=== PATIENT | female | born 1990 | race Caucasian/White ===

== ENCOUNTER → 2017-06-05 13:48 | Outpatient (CLI) | payer BC, SELFPAY ==
[2017-06-12 12:18] LABS: HPV Reflexed? NOT INDICATED
== END ==
PROVIDERS: Visit Provider Obstetrics & Gynecology
DX: Z12.4 Encounter for screening for malignant neoplasm of cervix (principal)
CPT/HCPCS: 88175; G0145

== ENCOUNTER → 2018-08-20 17:00 | Outpatient (CLI) | payer BC, SELFPAY ==
[2018-08-20 12:55] LABS: Absolute Lymphocyte Count 2.25 X10^3/ul (0.83-4.51); Absolute Neutrophil Count 3.4 X10^3/uL (2.0-7.7); Basophil# 0.03 X10^3/uL; Basophil% 0.5 % (0-1); Eosinophil# 0.17 X10^3/uL; Eosinophils% 2.7 % (0-5); Hematocrit 41.1 % (37-47); Hemoglobin 13.5 g/dl (12.0-15.0); Lymphocyte # 2.25 X10^3/ul (4.0); Lymphocyte % 35.9 % (19-41); Mean Corp Hgb Conc 32.8 g/gl (32-36); Mean Corpuscular Hgb 30.5 pg (27.0-32.0); Mean Platelet Vol. 10.6 fl (6.2-12.0); Monocyte# 0.42 X10^3/uL; Monocyte% 6.7 % (0-10); Neutrophil # 3.39 X10^3/uL (2.7-7.7); Platelet Count 260 K/mm3 (150-450); RBC Distribution Width CV 12.8 % (11.6-14.6); RBC Distribution Width SD 43.5 fl (35.1-43.9); Red Blood Count 4.42 M/mm3 (4.2-5.4); White Blood Count 6.3 K/mm3 (4.4-11.0)
[2018-08-20 12:56] LABS: POSITIVE COUNT NO; POSITIVE DIFFERENTIAL NO; POSITIVE MORPHOLOGY NO
[2018-08-20 13:08] LABS: ALB/GLOB Ratio 1.4 RATIO (0.9-2.4); AST(SGOT) 13 U/L (15-37); Alanine Aminotransfer ALT/SGPT 16 U/L (13-56); Alkaline Phosphatase 47 U/L (45-117); Anion Gap 2 (5-15); BUN 9 mg/dL (7-18); BUN/Creat Ratio 13.2 RATIO (10-20); Calcium,Total 9.1 mg/dL (8.5-10.1); Chloride 107 mmol/L (98-107); Creatinine, Serum 0.68 mg/dL (0.55-1.02); EST Glomerular Filtration Rate 108 mL/min (>60); Est Glom Filt Rate - Afr Amer 130 mL/min (>60); Globulin 2.9 g/dL (2.2-4.2); Glucose 76 mg/dL (74-106); Potassium 4.2 mmol/L (3.5-5.1); Protein, Total 6.9 g/dL (6.4-8.2); Sodium Level 140 mmol/L (136-145)
== END ==
PROVIDERS: Nurse Practitioner; Family Provider Internal Medicine; PCP Internal Medicine; Referring Provider Internal Medicine; Visit Provider Internal Medicine
DX: R10.9 Unspecified abdominal pain (principal); F03.91 Unspecified dementia, unspecified severity, with behavioral disturbance
CPT/HCPCS: 80053; 85025

== ENCOUNTER → 2020-05-21 14:33 | Outpatient (CLI) | payer BC, SELFPAY ==
[2017-02-14 22:24] VITALS: BMI 24.5
[2020-05-21 17:13] LABS: LDH 190 U/L (84-246)
[2020-05-21 17:15] LABS: hCG Titer Quant., Serum < 1 mIU/mL (1-3)
[2020-05-24 12:30] LABS: Cancer Antigen 125 26.9 U/mL (0.0-38.1); Carbohydrate Ag 19-9 2261 4 U/mL (0-35); Carcinoembryonic Antigen 0.6 ng/mL (0.0-4.7)
[2020-05-24 15:07] LABS: CA 19-9 Serial Monitor Graph 4
== END ==
PROVIDERS: PCP Internal Medicine; Visit Provider Student in an Organized Health Care Education/Training Program
DX: N83.9 Noninflammatory disorder of ovary, fallopian tube and broad ligament, unspecified (principal)
CPT/HCPCS: 36415; 82378; 83615; 84702; 86301; 86304

== ENCOUNTER → 2022-08-30 | Outpatient (CLI) | payer BC, SELFPAY ==
[2022-09-03 11:07] LABS: HPV APTIMA, High Risk Negative (Negative)
== END | disposition home or self-care (01) ==
LOC: LABSPEC 14:39
PROVIDERS: PCP Internal Medicine; Visit Provider Student in an Organized Health Care Education/Training Program
DX: Z12.4 Encounter for screening for malignant neoplasm of cervix (principal)
CPT/HCPCS: 87624; 88175; G0145

== ENCOUNTER → 2022-09-13 | Outpatient (CLI) | payer BC, SELFPAY ==
[2022-09-13 12:30] LABS: LDH 125 U/L (84-246)
[2022-09-14 15:08] LABS: AFP, Tumor Marker < 1.8 ng/mL (0.0-6.4); Cancer Antigen 125 16.9 U/mL (0.0-38.1); Carbohydrate AG 19-9 3 U/mL (0-35); Carcinoembryonic Antigen 2139 < 0.6 ng/mL (0.0-4.7)
== END | disposition home or self-care (01) ==
LOC: WOBLAB 10:28
PROVIDERS: PCP Internal Medicine; Visit Provider Student in an Organized Health Care Education/Training Program
DX: N83.201 Unspecified ovarian cyst, right side (principal)
CPT/HCPCS: 36415; 82105; 82378; 83615; 86301; 86304

== ENCOUNTER 2022-12-05 21:12 | Emergency (ER) | payer BC, SELFPAY ==
[2022-12-05 21:13] VITALS: BP 112/71; PULSE 86; RESP 16; TEMP 35.8; O2SAT 99; BMI 23.8
[2022-12-05] MEDS: Ondansetron 4 MG/2 ML Vial IV (21:47)
[2022-12-05] MEDS: 0.9% Normal Saline (1000mL) 1,000 ML 1000 ML IV (21:48)
[2022-12-05 22:06] LABS: Color, Urine Yellow (Yellow); Glucose, Dipstick 100 mg/dl (Normal); Ketone-Dipstick Negative (Negative); Leukocyte Esterase-Dipstick 100 /ul (Negative); Nitrite-Dipstick Negative (Negative); Occult Blood-Urine 10 /ul (Negative); Protein-Dipstick 15 mg/dl (Negative); Urine Bilirubin Dipstick Negative (Negative); Urine Clarity Sl. Cloudy (Clear); Urine Urobilinogen Normal (Normal); Urine pH 6.5 (5.0 - 8.0)
[2022-12-05 22:16] LABS: Bacteria 2+ /hpf (None Seen); Mucous, Urine 1+ /hpf (<or=2+); Red Blood Cells-Urine 0-5 SEEN /hpf (0-5); Squamous Epithelial Cells - UA 5-10 SEEN /hpf (5-10); White Blood Cells 0-5 SEEN /hpf (0-5)
[2022-12-05 22:22] LABS: Anion Gap 3 (5-15); BUN 9 mg/dL (7-18); BUN/Creat Ratio 16.1 RATIO (10-20); Calcium,Total 8.6 mg/dL (8.5-10.1); Chloride 105 mmol/L (98-107); Creatinine, Serum 0.56 mg/dL (0.55-1.02); EST Glomerular Filtration Rate 131 mL/min (>60); Est Glom Filt Rate - Afr Amer 159 mL/min (>60); Estimated Creatinine Clearance 111.95 ml/min; Glucose 90 mg/dL (74-106); Potassium 3.6 mmol/L (3.5-5.1); Sodium Level 136 mmol/L (136-145)
--- NOTE | 2022-12-05 22:32 | EX.ED.DYSGE1 ---
HPI History of Present Illness Chief Complaint: Nausea/Vomiting Informant: patient Narrative Narrative: Patient presents with concerns for dehydration. She is currently 7 weeks and has been having a lot of vomiting with her . She states with her 2 prior successful pregnancies she had significant nausea throughout. Patient was seen by OB in [place] last week. She is taking Phenergan regularly and was given limited tabs of Zofran to use as needed. Patient states she feels that Zofran works better but she did not have many of them to use. She feels that she is only urinated once today and is concerned she is getting dehydrated. She denies abdominal cramping or spotting. Patient is G4, P2, Ab1. [facility] Medical History (Updated 12/05/22 @ 23:[address] Regine Desai MD) Kidney stone Home Medications cephalexin 500 mg capsule 500 mg PO Q12 #10 CAPSULES 12/05/22 [Rx Last Taken Unknown] ondansetron 4 mg disintegrating tablet 4 mg PO Q8H PRN PRN Nausea #20 tabs 12/05/22 [Rx Last Taken Unknown] Allergy/AdvReac Type Severity Reaction Status Date / Time No Known Allergies Allergy Verified 12/05/22 21:13 Social History Smoking Status: Never smoker ROS ROS ED Constitutional Constitutional ED: Denies chills or fever(s) Eyes Eyes: Denies change in vision or discharge from eye(s) ENT ENT ED: Denies discharge from eye(s), rhinorrhea or sore throat Cardiovascular Cardiovascular: Denies chest pain or palpitations Respiratory/Chest Respiratory/Chest: Denies cough or dyspnea Gastrointestinal Gastrointestinal: Reports nausea and vomiting; Denies abdominal pain or diarrhea Genitourinary Genitourinary ED: Reports other Details: Decreased urine output Musculoskeletal Musculoskeletal: Denies back pain or extremity pain Integumentary Denies Abrasions or rash Neurologic Neurologic: Denies headache(s) or weakness Allergic/Immunologic Allergic/Immunologic ED: Denies lip swelling or urticaria EXAM Physical Exam Const Vital Signs: 12/05/22 21:13 Temperature 96.5 F L Temperature Source Temporal Pulse Rate 86 Respiratory Rate 16 Blood Pressure 112/71 Blood Pressure Mean 84 Pulse Ox 99 Positive well nourished and well developed General Appearance ED: well developed HEENT Reports normocephalic and head/scalp atraumatic Eyes PERRL and EOMs intact bilaterally Neck supple Chest Wall inspection of chest normal and palpation of chest normal Resp normal respiratory effort and clear to auscultation bilaterally Cardio regular rate and regular rhythm GI GI Narrative: Abdomen soft nontender. Hypoactive bowel sounds noted. Palpation: soft Extremity normal to inspection Neuro oriented x3 and no sensory deficits noted Sensorium / Orientation: alert Motor Exam: strength 5/5 throughout Psych mental status grossly normal Skin no rashes or lesions noted MDM MDM MDM Narrative Medical decision making narrative: IV line established. Patient given IV fluids along with Zofran. Chemistry studies obtained to evaluate electrolyte status and urinalysis obtained to evaluate for potential infection. Lab Data Labs: Laboratory Results - last 24 hr 12/05/22 21:50 Sodium 136 Potassium 3.6 Chloride 105 Carbon Dioxide 28.0 Anion Gap 3 L BUN 9 Creatinine 0.56 Estim Creat Clear Calc 111.95 Est GFR (MDRD) Af Amer 159 Est GFR (MDRD) Non-Af 131 BUN/Creatinine Ratio 16.1 Glucose 90 Calcium 8.6 Urine Color Yellow Urine Clarity Sl. Cloudy Urine pH 6.5 Ur Specific [place] 1.020 Urine Protein 15 H Urine Glucose (UA) 100 H Urine Ketones Negative Urine Occult Blood 10 H Urine Nitrite Negative Urine Bilirubin Negative Urine Urobilinogen Normal Ur Leukocyte Esterase 100 H Urine RBC 0-5 SEEN Urine WBC 0-5 SEEN Ur Squamous Epith Cells 5-10 SEEN Urine Bacteria 2+ Urine Mucus 1+ Treatment and Re-Evaluation :: Chemistry studies are unremarkable with normal renal function. Urinalysis reveals no ketones. She does have 2+ bacteria with 5-10 epithelial cells. 100 leukocyte esterase is noted. Given that the patient is currently I will treat her with 5 days of Keflex for bacteriuria. She is improved with fluids and Zofran. She is tolerating ice chips and crackers. I will write her prescription for Zofran. She will follow-up with her LIFT DRIVER as scheduled. Return instructions given. Discharge Plan Triage Chief Complaint: Nausea/Vomiting ED Provider: Regine Desai Dx/Rx/DC Orders Clinical Impression: First trimester , Vomiting Instructions: 1st Trimester, ED Vomiting (Adult) Prescriptions: New cephalexin 500 mg capsule 500 mg PO Q12 Qty: 10 0RF ondansetron 4 mg tablet,disintegrating 4 mg PO Q8H PRN PRN (Reason: Nausea) Qty: 20 0RF Primary Care Provider: Divine Ruelas Referrals: Divine Ruelas DO [Primary Care Provider] - JJ [employer] [Non-Staff] - 1 Week if not improving Disposition Disposition: Home, Self Care
[2022-12-05] MEDS: 0.9% Normal Saline (1000mL) 1,000 ML 150 ML IV (22:51)
[2022-12-05 23:13] VITALS: RESP 18
== END 2022-12-05 23:41 | disposition home or self-care (01) ==
PROVIDERS: Emergency Provider Emergency Medicine; PCP Internal Medicine; Visit Provider Emergency Medicine
DX: O99.891 Other specified diseases and conditions complicating pregnancy (principal); R11.2 Nausea with vomiting, unspecified; Z3A.01 Less than 8 weeks gestation of pregnancy
CPT/HCPCS: 80048; 81001; 96361; 96374; 99282; J7030; A4216; J2405

== ENCOUNTER 2022-12-09 20:22 | Emergency (ER) | payer BC, SELFPAY ==
[2022-12-09 20:26] VITALS: BP 101/61; PULSE 89; RESP 18; TEMP 36.3; O2SAT 99; BMI 25.1
--- NOTE | 2022-12-09 20:44 | EX.ED.DYSGE1 ---
HPI History of Present Illness Chief Complaint: Nausea/Vomiting Informant: patient Narrative Narrative: Patient presents with feeling dehydrated nausea vomiting. Patient is currently almost 8 weeks . She had hyperemesis gravidarum with all her pregnancies. First was not bad but second was worse and then this is also bad. She has had symptoms for almost 2 weeks. She has Phenergan and Zofran at home but is trying to use them sparingly because she does not have a lot. They do help. She is able to get some occasional fluids and food in but it seems to be getting worse. She states she gets to a point where it just seems like it rapidly gets worse. She feels that she is dehydrated and that makes this worse. She is not having abdominal pain. She has no discharge or bleeding. She has no diarrhea. She was treated for possible UTI. But she is now not having any urinary symptoms. I did look on the computer at those prior urine and lab test. There is no culture. I will recheck this just to be safe. She is seeing a new OB in [place] [facility]. Has had 1 visit. She also tried vitamin B6 and Unisom. But it seem like the B6 tablets made her very nauseated acutely when she tried them. [facility] Medical History Kidney stone Home Medications cephalexin 500 mg capsule 500 mg PO Q12 #10 CAPSULES 12/05/22 [Rx Last Taken Unknown] ondansetron 4 mg disintegrating tablet 4 mg PO Q8H PRN PRN Nausea #20 tabs 12/05/22 [Rx Last Taken Unknown] promethazine 25 mg tablet 25 mg PO Q8H PRN PRN nausea and vomiting 12/09/22 [History Last Taken Unknown] Allergy/AdvReac Type Severity Reaction Status Date / Time No Known Allergies Allergy Verified 12/09/22 20:23 Social History Smoking Status: Never smoker ROS ROS ED ROS Narrative A complete review of systems was performed and is negative except as documented in the history of present illness. Some specific details below. Constitutional: No recent fevers or chills. No malaise. ENT: No difficulty swallowing. No swelling. No pain. No real reflux. CV: No chest pain or palpitations. Respiratory: No dyspnea. No hemoptysis. No difficulty taking breaths. GI: Please see history of present illness. Nausea vomiting but no pain or diarrhea. : No frequency dysuria or hematuria. She is finishing treatment for UTI. Musculoskeletal: No recent trauma. No pains. Skin: No rash. Nondiaphoretic. Neuro: No weakness or numbness. Endocrine: No polyuria or polydipsia. EXAM Physical Exam Narrative Exam Narrative: CONSTITUTIONAL: Patient is nontoxic in appearance. The patient looks comfortable. HEENT: No notable trauma. Mucous membranes my only by. No sinus tenderness. No indication of pain with swallowing. EYES: No conjunctival injection. No proptosis. CARDIOVASCULAR: Regular rate. Regular rhythm. No notable murmur. No JVD. Her heart rate is only about 85. But when I have her stand up her heart rate does clearly increase. She does not get lightheaded or dizzy though. RESPIRATORY: No respiratory distress. Breathing is unlabored. No pain with a deep breath. GASTROINTESTINAL: Not distended. Bowel sounds are normal. No tenderness. GENITOURINARY: No tenderness over the bladder. No CVA tenderness. MUSCULOSKELETAL: Atraumatic. NEUROLOGICAL: Patient is alert and appropriate. No focal deficit noted. SKIN: No noted rashes. No diaphoresis. No pallor or jaundice. PSYCHIATRIC: Patient is calm. Mood is appropriate. Const Vital Signs: 12/09/22 20:26 Temperature 97.3 F L Temperature Source Temporal Pulse Rate 89 Respiratory Rate 18 Blood Pressure 101/61 Blood Pressure Mean 74 Pulse Ox 99 MDM MDM MDM Narrative Medical decision making narrative: Patient CBC shows no marked abnormality. Patient's electrolytes are normal. Patient's liver function test are normal. I rechecked the patient. She is feeling better already. She is only part way through her first bag. She has about 700 cc in. Plan is to get her a couple liters here. Zofran has helped here. She has been rationing her Zofran and Phenergan at home. I explained that it is better to take the medicine if it helps her eat and drink. Although we would prefer not to be on any medicines when , we also do not want her unable to eat and drink. I think if her urine does not show signs of infection we can stop her antibiotics at this time. She only has a couple days left if needed. She does not have any symptoms of a UTI. She has no fevers either. Patient's urine does not give me any UTI. Since she has no symptoms and no white cells of significance I think we can hold antibiotics at this time. Although her nausea and vomiting started long before she was on antibiotics these could contribute and I would like to minimize medications. I will send off a urine culture. We will refill her Zofran and Phenergan. Lab Data Attestation: I reviewed the patient's lab results. Labs: Laboratory Results - last 24 hr 12/09/22 12/09/22 20:50 21:46 WBC 9.8 RBC 4.22 Hgb 12.8 Hct 39.4 MCV 93.4 MCH 30.3 MCHC 32.5 RDW Std Deviation 42.1 RDW Coeff of Home 12.3 Plt Count 317 MPV 9.5 Immature Gran % (Auto) 0.300 Neut % (Auto) 70.1 H Lymph % (Auto) 21.1 [place] % (Auto) 5.9 Eos % (Auto) 2.0 Baso % (Auto) 0.6 Absolute Neuts (auto) 6.8 Absolute Lymphs (auto) 2.06 Nucleated RBC % 0 Sodium 139 Potassium 3.8 Chloride 106 Carbon Dioxide 27.0 Anion Gap 6 BUN 10 Creatinine 0.60 Estim Creat Clear Calc 104.49 Est GFR (MDRD) Af Amer 146 Est GFR (MDRD) Non-Af 121 BUN/Creatinine Ratio 16.6 Glucose 90 Calcium 9.3 Total Bilirubin 0.30 AST 12 L ALT 23 Alkaline Phosphatase 51 Total Protein 6.7 Albumin 3.4 Globulin 3.3 Albumin/Globulin Ratio 1.0 Urine Color Yellow Urine Clarity Sl. Cloudy Urine pH 6.0 Ur Specific [place] 1.025 Urine Protein 15 H Urine Glucose (UA) 100 H Urine Ketones Negative Urine Occult Blood 10 H Urine Nitrite Negative Urine Bilirubin Negative Urine Urobilinogen Normal Ur Leukocyte Esterase 25 H Urine RBC 0-5 SEEN Urine WBC 0-5 SEEN Ur Squamous Epith Cells 0-5 SEEN Amorphous Sediment R Urine Bacteria 0 SEEN Urine Mucus 0 SEEN Discharge Plan Triage Chief Complaint: Nausea/Vomiting ED Provider: Mike Zaptaa Dx/Rx/DC Orders Clinical Impression: Hyperemesis gravidarum, First trimester , History of UTI Instructions: ED Hyperemesis Gravidarum Prescriptions: No Action cephalexin 500 mg capsule 500 mg PO Q12 Qty: 10 0RF ondansetron 4 mg tablet,disintegrating 4 mg PO Q8H PRN PRN (Reason: Nausea) Qty: 20 0RF promethazine 25 mg tablet 25 mg PO Q8H PRN PRN (Reason: nausea and vomiting) Patient Comments: take 1 tablet by mouth every 8 hours if needed for nausea Primary Care Provider: Divine Ruelas Referrals: Divine Ruelas, [Primary Care Provider] - As Needed Activity Restrictions/Additional Instructions: Follow-up with your OB physician as soon as possible. Give them a call on Sunday for an update. Disposition Disposition: Home, Self Care
[2022-12-09] MEDS: Ondansetron 4 MG/2 ML Vial IV (20:54)
[2022-12-09] MEDS: 0.9% Normal Saline (1000mL) 2,000 ML 1000 ML IV (20:54)
[2022-12-09 21:03] LABS: Absolute Lymphocyte Count 2.06 X10^3/uL (0.83-4.51); Absolute Neutrophil Count 6.8 X10^3/uL (2.0-7.7); Basophil# 0.06 X10^3/uL; Basophil% 0.6 % (0-1); Hematocrit 39.4 % (37-47); Hemoglobin 12.8 g/dL (12.0-15.0); Lymphocyte # 2.06 X10^3/ul (0.83-4.51); Lymphocyte % 21.1 % (19-41); Mean Corp Hgb Conc 32.5 g/dL (32-36); Mean Corpuscular Hgb 30.3 pg (27.0-32.0); Mean Corpuscular Volume 93.4 fL (81-99); Mean Platelet Vol. 9.5 fl (6.2-12.0); Monocyte# 0.58 X10^3/uL; Monocyte% 5.9 % (0-10); NRBC Flagged by Analyzer 0 % (0-5); Neutrophil # 6.84 X10^3/uL (2.7-7.7); Neutrophil % 70.1 % (47-70); Platelet Count 317 K/mm3 (150-450); RBC Distribution Width CV 12.3 % (11.6-14.6); RBC Distribution Width SD 42.1 fl (35.1-43.9); Red Blood Count 4.22 M/mm3 (4.2-5.4); White Blood Count 9.8 K/mm3 (4.4-11.0)
[2022-12-09 21:15] LABS: AST(SGOT) 12 U/L (15-37); Alanine Aminotransfer ALT/SGPT 23 U/L (13-56); Albumin, Serum 3.4 g/dL (3.2-5.0); Alkaline Phosphatase 51 U/L (45-117); Anion Gap 6 (5-15); BUN 10 mg/dL (7-18); BUN/Creat Ratio 16.6 RATIO (10-20); Calcium,Total 9.3 mg/dL (8.5-10.1); Chloride 106 mmol/L (98-107); EST Glomerular Filtration Rate 121 mL/min (>60); Est Glom Filt Rate - Afr Amer 146 mL/min (>60); Estimated Creatinine Clearance 104.49 ml/min; Globulin 3.3 g/dL (2.2-4.2); Glucose 90 mg/dL (74-106); Potassium 3.8 mmol/L (3.5-5.1); Protein, Total 6.7 g/dL (6.4-8.2); Sodium Level 139 mmol/L (136-145)
[2022-12-09 21:52] LABS: Bacteria 0 SEEN /hpf (None Seen); Mucous, Urine 0 SEEN /hpf (<or=2+)
[2022-12-09 21:53] LABS: Color, Urine Yellow (Yellow); Glucose, Dipstick 100 mg/dl (Normal); Ketone-Dipstick Negative (Negative); Leukocyte Esterase-Dipstick 25 /ul (Negative); Nitrite-Dipstick Negative (Negative); Occult Blood-Urine 10 /ul (Negative); Protein-Dipstick 15 mg/dl (Negative); Specific Gravity, Urine 1.025 (1.002-1.030); Urine Bilirubin Dipstick Negative (Negative); Urine Clarity Sl. Cloudy (Clear); Urine Urobilinogen Normal (Normal)
[2022-12-09 21:58] LABS: Amorphous Sediment R; Red Blood Cells-Urine 0-5 SEEN /hpf (0-5); Squamous Epithelial Cells - UA 0-5 SEEN /hpf (5-10); White Blood Cells 0-5 SEEN /hpf (0-5)
[2022-12-09] MEDS: Metoclopramide 10 MG/2 ML Vial 5 MG IV (23:40)
[2022-12-10 01:03] VITALS: PULSE 68; RESP 16; O2SAT 99
== END 2022-12-10 01:05 | disposition home or self-care (01) ==
PROVIDERS: Emergency Provider Emergency Medicine; PCP Internal Medicine; Visit Provider Emergency Medicine
DX: O21.0 Mild hyperemesis gravidarum (principal); Z3A.08 8 weeks gestation of pregnancy
CPT/HCPCS: 80053; 81001; 85025; 87077; 87086; 87088; 87186; 96361; 96374; 96375; 99283; J7030; A4216; J2405

== ENCOUNTER 2023-04-12 14:58 | Emergency (ER) | payer BC, SELFPAY ==
[2023-04-12 14:59] VITALS: BP 98/68; PULSE 125; RESP 18; TEMP 36.8; O2SAT 100; BMI 25.8
--- NOTE | 2023-04-12 15:16 | ED.VIS.GI ---
HPI HPI - GI History of Present Illness Chief Complaint: Nausea/Vomiting Informant: patient Nausea/Vomiting/Emesis GI Symptom: Positive for Nausea and Vomiting Onset: Yesterday Quality: Positive for Nonbilious; Negative for Blood streaks, Coffee ground or Hematemesis Diarrhea/Melena/Hematochezia GI Symptom: Negative for Diarrhea, Melena or Hematochezia Associated Symptoms Associated Symptoms: Negative for Dysuria, Frequency or Hematuria Narrative Narrative: Patient presents with nausea and vomiting that began yesterday. Patient states started having some nausea last night. Patient that she has been unable keep anything down today. Patient admits to some subjective chills but denies any fevers. Patient states she had a recent sore throat and cough. Patient denies any diarrhea, melena, or hematochezia. Patient denies any urinary complaints. Patient is 25 weeks . Patient denies any abnormal vaginal bleeding or discharge. Patient states she has been feeling lightheaded and feels like she might be dehydrated. Patient also admits to some general myalgias. [facility] Medical History Kidney stone Home Medications cephalexin 500 mg capsule 500 mg PO Q12 #10 CAPSULES 12/05/22 [Rx Last Taken Unknown] ondansetron 4 mg disintegrating tablet 4 mg PO Q8H PRN PRN Nausea #20 tabs 12/05/22 [Rx Last Taken Unknown] promethazine 25 mg tablet 25 mg PO Q8H PRN PRN nausea and vomiting 12/09/22 [History Last Taken Unknown] metoclopramide HCl 5 mg tablet (Reglan) 5 mg PO 4X/DAY PRN PRN nausea and vomiting #28 tabs 12/10/22 [Rx Last Taken Unknown] oseltamivir 75 mg capsule 75 mg PO BID #10 CAPSULES 04/12/23 [Rx Last Taken Unknown] Allergy/AdvReac Type Severity Reaction Status Date / Time No Known Allergies Allergy Verified 12/09/22 20:23 Surgical History no surgical history no surgical history Social History Smoking Status: Never smoker ROS ROS ED Constitutional Constitutional ED: Denies chills or fever(s) Eyes Eyes: Denies blurry vision or change in vision ENT ENT ED: Reports sore throat; Denies rhinorrhea Cardiovascular Cardiovascular: Denies chest pain or palpitations Respiratory/Chest Respiratory/Chest: Reports cough; Denies dyspnea Gastrointestinal Gastrointestinal: Reports nausea and vomiting; Denies abdominal pain or diarrhea Genitourinary Genitourinary ED: Denies dysuria or hematuria Musculoskeletal Musculoskeletal: Reports myalgias and neck pain Integumentary Denies abscess or rash Neurologic Neurologic: Reports headache(s); Denies weakness Allergic/Immunologic Allergic/Immunologic ED: Denies mouth swelling or urticaria EXAM Physical Exam Const Vital Signs: 04/12/23 14:59 Temperature 98.3 F Temperature Source Temporal Pulse Rate 125 H Respiratory Rate 18 Blood Pressure 98/68 Blood Pressure Mean 78 Pulse Ox 100 Positive well nourished and well developed General Appearance ED: well developed and NAD HEENT Reports moist mucous membranes Neck supple and no JVD Resp normal respiratory effort and clear to auscultation bilaterally Cardio regular rate and regular rhythm GI non-tender GI Narrative: There is a gravid uterus. There is no tenderness noted. Fundal height is appropriate. Palpation: soft Extremity normal to inspection General Extremety ED: Negative for tenderness Neuro oriented x3, CN's II-XII intact bilaterally and no sensory deficits noted Sensorium / Orientation: alert Motor Exam: strength 5/5 throughout Psych mental status grossly normal MDM MDM MDM Narrative Medical decision making narrative: Differential diagnosis includes viral illness, dehydration, electrolyte abnormality, anemia, urinary tract infection, and hyperemesis gravidarum. CBC will be obtained to assess for leukocytosis and anemia. Basic metabolic profile will be obtained to assess for electrolyte abnormality and renal function. Quantitative hCG will be obtained to assess for . Urinalysis will be obtained to assess for urinary tract infection and hematuria. COVID-19, influenza, and RSV PCR will be obtained to assess for viral illness. Lab Data Attestation: I reviewed the patient's lab results. Lab results narrative: CBC was reviewed. There is a slight anemia with a hemoglobin of 11.4 hematocrit 34.3. Basic metabolic profile was reviewed and was essentially within normal limits. [place] [address]. Urinalysis was reviewed. There is 150 urine ketones. There are 5-10 epithelial cells. There is no evidence of urinary tract infection or hematuria. COVID-19 PCR was reviewed and was negative. Influenza PCR was reviewed and was positive for influenza A and negative for influenza B. RSV PCR was reviewed and was negative. Labs: Laboratory Results - last 24 hr 04/12/23 04/12/23 15:35 15:56 WBC 5.6 RBC 3.62 L Hgb 11.4 L Hct 34.3 L MCV 94.8 MCH 31.5 MCHC 33.2 RDW Std Deviation 46.3 H RDW Coeff of Home 13.2 Plt Count 195 MPV 10.0 Immature Gran % (Auto) 1.800 H Neut % (Auto) 82.8 H Lymph % (Auto) 5.9 L [place] % (Auto) 8.6 Eos % (Auto) 0.4 Baso % (Auto) 0.5 Absolute Neuts (auto) 4.7 Absolute Lymphs (auto) 0.33 L Nucleated RBC % 0 Differential Comment SEE COMMENT Platelet Estimate ADEQUATE RBC Morphology N CHROM Anisocytosis RARE Macrocytosis RARE Sodium 139 Potassium 3.4 L Chloride 109 H Carbon Dioxide 24.0 Anion Gap 6 BUN 7 Creatinine 0.53 L Estim Creat Clear Calc 131.51 Est GFR (MDRD) Af Amer 169 Est GFR (MDRD) Non-Af 140 BUN/Creatinine Ratio 13.2 Glucose 86 Calcium 8.4 L HCG, Quant 34690 H Urine Color Yellow Urine Clarity Clear Urine pH 6.0 Ur Specific [place] 1.025 Urine Protein 30 H Urine Glucose (UA) Normal Urine Ketones 150 A* Urine Occult Blood 25 H Urine Nitrite Negative Urine Bilirubin Negative Urine Urobilinogen Normal Ur Leukocyte Esterase 25 H Urine RBC 0-5 SEEN Urine WBC 0 SEEN Ur Squamous Epith Cells 5-10 SEEN Urine Bacteria 0 SEEN Urine Mucus 2+ Treatment and Re-Evaluation :: Patient was given IV fluids and Zofran. Patient was feeling better on reevaluation. Patient was advised of her findings. Patient was given her first dose of Tamiflu here. Patient was given a prescription for Tamiflu. Patient was instructed to drink plenty of fluids. Patient was instructed to follow-up with her primary care physician and CERTIFIED MEDICAL CODING SPECIALIST in 5 to 7 days. Patient understood and was agreeable with the plan. All questions were answered. Discharge Plan Triage Chief Complaint: Nausea/Vomiting ED Provider: Matt Quinonez Dx/Rx/DC Orders Clinical Impression: Influenza A, Instructions: ED Influenza (Adult) Prescriptions: New oseltamivir [oseltamivir] 75 mg capsule 75 mg PO BID Qty: 10 0RF No Action cephalexin 500 mg capsule 500 mg PO Q12 Qty: 10 0RF ondansetron 4 mg tablet,disintegrating 4 mg PO Q8H PRN PRN (Reason: Nausea) Qty: 20 0RF promethazine 25 mg tablet 25 mg PO Q8H PRN PRN (Reason: nausea and vomiting) Patient Comments: take 1 tablet by mouth every 8 hours if needed for nausea metoclopramide HCl [Reglan] 5 mg tablet 5 mg PO 4X/DAY PRN PRN (Reason: nausea and vomiting) Qty: 28 2RF Primary Care Provider: Care Physician,No Primary Referrals: Divine Ruelas DO [Med Staff - Bariatric Nurse] - 5-7 Days Disposition Disposition: Home, Self Care
[2023-04-12 15:49] LABS: Absolute Lymphocyte Count 0.33 X10^3/uL (0.83-4.51); Absolute Neutrophil Count 4.7 X10^3/uL (2.0-7.7); Basophil# 0.03 X10^3/uL; Basophil% 0.5 % (0-1); Eosinophil# 0.02 X10^3/uL; Eosinophils% 0.4 % (0-5); Hematocrit 34.3 % (37-47); Hemoglobin 11.4 g/dL (12.0-15.0); Lymphocyte # 0.33 X10^3/ul (0.83-4.51); Lymphocyte % 5.9 % (19-41); Mean Corp Hgb Conc 33.2 g/dL (32-36); Mean Corpuscular Hgb 31.5 pg (27.0-32.0); Mean Corpuscular Volume 94.8 fL (81-99); Monocyte# 0.48 X10^3/uL; Monocyte% 8.6 % (0-10); NRBC Flagged by Analyzer 0 % (0-5); Neutrophil # 4.65 X10^3/uL (2.7-7.7); Neutrophil % 82.8 % (47-70); POSITIVE DIFFERENTIAL YES; Platelet Count 195 K/mm3 (150-450); RBC Distribution Width CV 13.2 % (11.6-14.6); RBC Distribution Width SD 46.3 fl (35.1-43.9); Red Blood Count 3.62 M/mm3 (4.2-5.4); White Blood Count 5.6 K/mm3 (4.4-11.0)
[2023-04-12] MEDS: Ondansetron 4 MG/2 ML Vial IV (15:54)
[2023-04-12] MEDS: 0.9% Normal Saline (1000mL) 1,000 ML 1000 ML IV (15:54)
[2023-04-12 16:02] LABS: Bacteria 0 SEEN /hpf (None Seen); White Blood Cells 0 SEEN /hpf (0-5)
[2023-04-12 16:02] LABS: Differential Indicated SCAN CRITERIA MET
[2023-04-12 16:03] LABS: Anion Gap 6 (5-15); BUN 7 mg/dL (7-18); BUN/Creat Ratio 13.2 RATIO (10-20); Calcium,Total 8.4 mg/dL (8.5-10.1); Chloride 109 mmol/L (98-107); Creatinine, Serum 0.53 mg/dL (0.55-1.02); EST Glomerular Filtration Rate 140 mL/min (>60); Est Glom Filt Rate - Afr Amer 169 mL/min (>60); Estimated Creatinine Clearance 131.51 ml/min; Glucose 86 mg/dL (74-106); Potassium 3.4 mmol/L (3.5-5.1); Sodium Level 139 mmol/L (136-145)
[2023-04-12 16:11] LABS: Anisocytosis RARE; Macrocytosis RARE; Platelet Estimate ADEQUATE (ADEQ); Red Cell Morphology N CHROM NORMAL (NORM C&C)
[2023-04-12 16:11] LABS: Color, Urine Yellow (Yellow); Glucose, Dipstick Normal (Normal); Leukocyte Esterase-Dipstick 25 /ul (Negative); Nitrite-Dipstick Negative (Negative); Occult Blood-Urine 25 /ul (Negative); Protein-Dipstick 30 mg/dl (Negative); Specific Gravity, Urine 1.025 (1.002-1.030); Urine Bilirubin Dipstick Negative (Negative); Urine Clarity Clear (Clear); Urine Urobilinogen Normal (Normal)
[2023-04-12 16:14] LABS: Ketone-Dipstick 150 mg/dl (Negative)
[2023-04-12 16:18] LABS: Mucous, Urine 2+ /hpf (<or=2+); Red Blood Cells-Urine 0-5 SEEN /hpf (0-5); Squamous Epithelial Cells - UA 5-10 SEEN /hpf (5-10)
[2023-04-12 16:25] LABS: hCG Titer Quant., Serum 13907 mIU/mL (1-3)
[2023-04-12] MEDS: Oseltamivir Phosphate 75 MG Capsule PO (17:05)
[2023-04-12 17:07] VITALS: BP 98/71; PULSE 99; RESP 16; TEMP 37.2; O2SAT 98
--- OUTSIDE RECORDS SUMMARY | 2023-04-12 21:01 | XMS RPT_ITS | CCD ---
Author Name Unknown Address [address] [place] [address] Organization [facility] Care Team Providers Care Supervisor Rubber Covering Name Role Phone ELIGIO DOYLE Unavailable Unavailable RUBY BRYANT T Unavailable Unavailab le NO PRIMARY CARE, MD Unavailable Unavailable EILEENGREGORIO MathisFER T Unavailable Unavailable PIETER STEVE SUMMER T Unavailable Unavailab le NO PRIMARY CARE, MD Unavailable Unavailable NO PRIMARY CARE, MD Unavailable Unavailable REGINE ARELLANO T Unavailable Unavailable PIETER STEVE SUMMER T Unavailable Unavailab le NO PRIMARY CARE, MD Unavailable Unavailable EILEENMARIIA MathisREGINE T Unavailable Unavailable PIETER STEVE SUMMER T Unavailable Unavailab le NO PRIMARY CARE, MD Unavailable Unavailable ELIGIO DOYLE Unavailable Unavailable RUBY BRYANT T Unavailable Unavailab le Carlos Albertoa, Margaret Unavailable Dora Lim Unavailable Unavailable Unavailable Unavailable Yajaira Pearson CNP Unavailable Zina Griffin LPN Unavailable Unavailable Dora Lim Unavailable Unavailable Unavailable Unavailable Tenzin Chou LPN Unavailable Unavailable Ciesa, Yajaira Attending Unavailable Ciesa, Yajaira Referring Unavailable Carlos Albertoa Yajaira Consulting Unavailable Carlos Albertoa Yajaira Unavailable Lora Tran MA Unavailable Unavailable Zenaida Munoz CNP Unavailable JJ WHITTINGTON Attending Caitlin vailable JJ WHITTINGTON Attending Caitlin vailable Allergies Allergy Classification Reported Allergen(s) Allergy Type Date of Onset Reaction(s) Facility (8 sources) Animal Dander; Translations: [Animal Dander] allergy to substance [facility] Work Phone: (1 source) allergy to substance [facility] Work Phone: (8 sources) Allergy to No Known Drug Allergies (Renamed from No Known Drug Allergies); Translations: [Allergy to No Known Drug Allergies (Renamed from No Known Drug Allergies)] allergy to substance [facility] Work Phone: (1 source) allergy to substance [facility] Work Phone: (1 source) allergy to substance [facility] Work Phone: (5 sources) Ruiz allergy to substance [facility] Work Phone: Medications Completed/Discontinued Medications Medication Drug Class(es) Dates Sig (Normalized) Sig (Original) acetaminophen 500 mg / HYDROcodone bitartrate 5 mg oral tablet (8 sources) Opioid Agonist End: 10-27-2008 take 1-2 tablets by mouth every six hours as needed VICODIN, 5-500MG (Oral Tablet) 1-2 tabs q6hr/PRN for 0 days Refills: 0 Ordered: 27-Oct-2008 JULIAN Espinosa LPN End : 27-Oct-2008 Inactive amoxicillin 875 mg / clavulanate 125 mg oral tablet (8 sources) Penicillin-class Antibacterial Start: 02-02-2009 End: 02-16-2009 take 1 tablet by mouth twice daily AUGMENTIN, 875-125MG (Oral Tablet) 1 Tablet bid for 14 days Quantity: 28 {Tablet} Refills: 0 Ordered: 02-Feb-2009 Lili Yajaira DeisidarielYajaira boyer Start : 02-Feb-2009 End : 16-Feb-2009 Inactive azithromycin 250 mg oral tablet (8 sources) Macrolide Antimicrobial Start: 01-12-2016 End: 02-14-2016 take 1 tablet by mouth once daily Zithromax Z-Jeet 250 MG Oral Tablet 1 Tablet 2 on day #1 then 1 daily for 0 days Quantity: 1 {Tablet} Refills: 0 Ordered: 14-Feb-2016 Margaret Renee LPN Start : 12-Jan-2016 End : 14-Feb-2016 Discontinued benzoyl peroxide 0.05 mg/mg / erythromycin 0.03 mg/mg topical gel (8 sources) Macrolide, Macrolide Antimicrobial Start: 11-27-2006 End: 05-14-2007 BENZAMYCIN, 5-3% (External Gel) 1 (one) Gel bID to dry skin for 0 days Refills: 3 Ordered: 27-Nov-2006 Krissy Duarte RN Start : 27-Nov-2006 End : 14-May-2007 Inactive bifidobacterium infantis 4 mg oral capsule (8 sources) Start: 12-28-2008 take 1 capsule by mouth once daily ALIGN (Oral Capsule) 1 (one) Capsule daily for 0 days Refills: 0 Ordered: 20-Apr-2009 JULIAN Espinosa LPN Start : 28-Dec-2008 Inactive cetirizine hydrochloride 10 mg oral tablet (8 sources) Histamine-1 Receptor Antagonist take 1 tablet by mouth once daily ZYRTEC, 10MG (Oral Tablet) 1 QD for 0 days Refills: 0 Ordered: 20-Apr-2009 JULIAN Espinosa LPN Inactive ciprofloxacin 500 mg oral tablet (8 sources) Quinolone Antimicrobial Start: 06-06-2010 End: 06-13-2010 take 1 tablet by mouth twice daily CIPRO, 500MG (Oral Tablet) 1 Tablet bid for 7 days Quantity: 14 {Tablet} Refills: 0 Ordered: 06-Jun-2010 Yajaira Pearson Mary Start : 06-Jun-2010 End : 13-Jun-2010 Inactive 24 hr clarithromycin 500 mg extended release oral tablet (8 sources) Macrolide Antimicrobial Start: 04-20-2009 End: 04-30-2009 take 2 tablets by mouth once daily BIAXIN XL PAC, 500MG (Oral Tablet Extended Release 24 Hour) 2 (two) Tablet ER 24HR daily for 10 days Quantity: 20 {Tablet_ER_24HR} Refills: 0 Ordered: 25-Oct-2009 Yajaira Pearson Mary Start : 20-Apr-2009 End : 30-Apr-2009 Inactive Problems Active Problems Problem Classification Problem Date Documented Da te Episodic/Chronic Abdominal pain (20 sources) Generalized abdominal pain; Translations: [Acute abdominal pain] Resolved: 11-08-2021 01-11-2015 Episodic Past or Other Problems Problem Classification Problem Date Documented Da te Episodic/Chronic Unclassified (6 sources) Abdominal pain, acute Unclassified (6 sources) Poison joelle (692.6) Unclassified (6 sources) Eustachian tube dysfunction (381.81) Unclassified (8 sources) Pregnancies (); Translations: [Pregnancies ()] 08-20-2018 Results Test Name Value Interpretation Reference Range Facil ity Vital Signs Date Time Vital Sign Value Performing Clinician Facility 11-08-2021 13:55-0400 Body height 154.94 cm Lora Tran MA [facility] Work Phone: 11-08-2021 13:55-0400 Body mass index (BMI) [Ratio] 23.81 kg/m2 Lora Tran MA [facility] Work Phone: 11-08-2021 13:55-0400 Body surface area Derived from formula 1.55 m2 Lora Tran MA [facility]; [facility] Work Phone: 11-08-2021 13:55-0400 Body temperature 97.8 [degF] Lora Tran MA [facility]; [facility] Work Phone: 11-08-2021 13:55-0400 Body weight 57.15 kg Lora Tran MA [facility]; [facility] Work Phone: 11-08-2021 13:55-0400 Diastolic blood pressure 80 mm[Hg] Lora Tran MA [facility]; [facility] Work Phone: Encounters Encounter Date Encounter Type Care Provider Facility Start: 03-12-2023 End: 03-13-2023 ambulatory JJ LEVY PALEOBOTANIST-[facility] Facility:B Start: 03-12-2023 End: 03-12-2023 Patient encounter procedure JJ LEVY PALEOBOTANIST-[facility] Start: 12-25-2022 End: 12-26-2022 ambulatory JJ LEVY PALEOBOTANIST-CNM Facility:[facility] Start: 12-25-2022 End: 12-25-2022 Patient encounter procedure JJ LEVY PALEOBOTANIST-CNM [facility] Start: 11-08-2021 End: 11-08-2021 Office outpatient visit 15 minutes Yajaira Pearson Work Phone: [facility] Start: 11-07-2021 ambulatory Yajiara Pearson [facility] Start: 07-12-2020 End: 07-12-2020 Office outpatient visit 10 minutes Yajaira Pearson PARTS EXPEDITER Work Phone: [facility] Start: 07-02-2020 End: 07-02-2020 Office outpatient visit 15 minutes Yajaira Pearson [employer]S EXPEDITER Work Phone: [facility] Start: 08-20-2018 End: 08-20-2018 Office outpatient visit 15 minutes Y[facility]a [facility] Start: 01-29-2017 Ambulatory MD [facility]WA [facility] Start: 01-01-2017 End: 01-01-2017 Ambulatory MD [facility]HA[facility] Start: 12-04-2016 Ambulatory MD RANDHAWA [facility] Start: 11-07-2016 End: 11-07-2016 Ambulatory ELIGIO DOYLE [facility] Start: 01-12-2016 End: 01-12-2016 Office outpatient visit 25 minutes Yajaira [facility] Start: 02-25-2014 End: 02-25-2014 Annotation/Addendum Yajaira [facility] Start: 08-09-2010 End: 08-09-2010 Phone Encounter Yajaira [facility] Start: 08-08-2010 End: 08-08-2010 Office outpatient visit 15 minutes Yajaira [facility] Start: 06-06-2010 End: 06-06-2010 Patient encounter procedure Yajaira [facility] Start: 05-02-2010 End: 05-02-2010 Nursing evaluation of patient and report Yajaira [facility] Start: 04-19-2010 End: 04-19-2010 Office outpatient visit 15 minutes Yajaira [facility] Start: 12-15-2009 End: 12-15-2009 Patient encounter procedure Yajaira [facility] Start: 10-25-2009 End: 10-25-2009 Patient encounter procedure Yajaira [facility] Start: 04-20-2009 End: 04-20-2009 Office outpatient visit 10 minutes Yajaira [facility] Start: 02-02-2009 End: 02-02-2009 Office outpatient new 30 minutes Yajaira Pearson [facility] Start: 12-28-2008 End: 12-28-2008 Office outpatient visit 15 minutes Yajaira Pearson [facility] Start: 10-27-2008 End: 10-27-2008 Patient encounter procedure Yajaira Pearson [facility] Start: 07-02-2008 End: 07-02-2008 Office outpatient visit 15 minutes Yajaira Pearson [facility] Start: 06-30-2008 End: 06-30-2008 Office outpatient visit 25 minutes Yajaira Pearson [facility] Start: 08-20-2007 End: 08-20-2007 Patient encounter procedure Yajaira Pearson [facility] Start: 08-06-2007 End: 08-06-2007 Office outpatient visit 25 minutes Yajaira Pearson [facility] Start: 07-29-2007 End: 07-29-2007 Patient encounter procedure Yajaira Pearson [facility] Start: 05-27-2007 End: 05-27-2007 Historical Summary Yajaira [facility] Start: 05-14-2007 End: 05-14-2007 Office outpatient visit 15 minutes Yajaira Pearson [facility] Start: 11-27-2006 End: 11-27-2006 Office outpatient visit 10 minutes Yajaira Pearson [facility] Start: 10-04-2006 End: 10-04-2006 Historical Summary Yajaria [facility] Start: 10-04-2006 End: 10-04-2006 Office outpatient new 30 minutes Yajaira Pearson [facility] Procedures Date Procedure Procedure Detail Performing Clinician Start: 12-05-2022 End: 12-05-2022 Emergency Department Summary Procedure Note: See Note; NOTES: [facility] Medical Records Department [address] [place] [id number] Emergency Department Summary 12/05/22 MR#: [id number] Acct: [id number] Name: ERIN RAO Rep #: [id number] : 1990 32 From: Regine Desai MD PCP: Dr. Divine Ruelas, DO Status:REG ER Location: ED HPI History of Present Illness Chief Complaint: Nausea/Vomiting Informant: patient Narrative Narrative: Patient presents with concerns for dehydration. She is currently 7 weeks and has been having a lot of vomiting with her . She states with her 2 prior successful pregnancies she had significant nausea throughout. Patient was seen by OB in [place] last week. She is taking Phenergan regularly and was given limited tabs of Zofran to use as needed. Patient states she feels that Zofran works better but she did not have many of them to use. She feels that she is only urinated once today and is concerned she is getting dehydrated. She denies abdominal cramping or spotting. Patient is G4, P2, Ab1. [facility] Medical History (Updated 12/05/22 @ 23:[address] Regine Desai MD) Kidney stone Home Medications cephalexin 500 mg capsule 500 mg PO Q12 #10 CAPSULES 12/05/22 [Rx Last Taken Unknown] ondansetron 4 mg disintegrating tablet 4 mg PO Q8H PRN PRN Nausea #20 tabs 12/05/22 [Rx Last Taken Unknown] Allergy/AdvReac Type Severity Reaction Status Date / Time No Known Allergies Allergy Verified 12/05/22 21:13 Social History Smoking Status: Never smoker ROS ROS ED Constitutional Constitutional ED: Denies chills or fever(s) Eyes Eyes: Denies change in vision or discharge from eye(s) ENT ENT ED: Denies discharge from eye(s), rhinorrhea or sore throat Cardiovascular Cardiovascular: Denies chest pain or palpitations Respiratory/Chest Respiratory/Chest: Denies cough or dyspnea Gastrointestinal Gastrointestinal: Reports nausea and vomiting; Denies abdominal pain or diarrhea Genitourinary Genitourinary ED: Reports other Details: Decreased urine output Musculoskeletal Musculoskeletal: Denies back pain or extremity pain Integumentary Denies Abrasions or rash Neurologic Neurologic: Denies headache(s) or weakness Allergic/Immunologic Allergic/Immunologic ED: Denies lip swelling or urticaria EXAM Physical Exam Const Vital Signs: 12/05/22 21:13 Temperature 96.5 F L Temperature Source Temporal Pulse Rate 86 Respiratory Rate 16 Blood Pressure 112/71 Blood Pressure Mean 84 Pulse Ox 99 Positive well nourished and well developed General Appearance ED: well developed HEENT Reports normocephalic and head/scalp atraumatic Eyes PERRL and EOMs intact bilaterally Neck supple Chest Wall inspection of chest normal and palpation of chest normal Resp normal respiratory effort and clear to auscultation bilaterally Cardio regular rate and regular rhythm GI GI Narrative: Abdomen soft nontender. Hypoactive bowel sounds noted. Palpation: soft Extremity normal to inspection Neuro oriented x3 and no sensory deficits noted Sensorium / Orientation: alert Motor Exam: strength 5/5 throughout Psych mental status grossly normal Skin no rashes or lesions noted MDM MDM MDM Narrative Medical decision making narrative: IV line established. Patient given IV fluids along with Zofran. Chemistry studies obtained to evaluate electrolyte status and urinalysis obtained to evaluate for potential infection. Lab Data Labs: Laboratory Results - last 24 hr 12/05/22 21:50 Sodium 136 Potassium 3.6 Chloride 105 Carbon Dioxide 28.0 Anion Gap 3 L BUN 9 Creatinine 0.56 Estim Creat Clear Calc 111.95 Est GFR (MDRD) Af Amer 159 Est GFR (MDRD) Non-Af 131 BUN/Creatinine Ratio 16.1 Glucose 90 Calcium 8.6 Urine Color Yellow Urine Clarity Sl. Cloudy Urine pH 6.5 Ur Specific [place] 1.020 Urine Protein 15 H Urine Glucose (UA) 100 H Urine Ketones Negative Urine Occult Blood 10 H Urine Nitrite Negative Urine Bilirubin Negative Urine Urobilinogen Normal Ur Leukocyte Esterase 100 H Urine RBC 0-5 SEEN Urine WBC 0-5 SEEN Ur Squamous Epith Cells 5-10 SEEN Urine Bacteria 2+ Urine Mucus 1+ Treatment and Re-Evaluation :: Chemistry studies are unremarkable with normal renal function. Urinalysis reveals no ketones. She does have 2+ bacteria with 5-10 epithelial cells. 100 leukocyte esterase is noted. Given that the patient is currently I will treat her with 5 days of Keflex for bacteriuria. She is improved with fluids and Zofran. She is tolerating ice chips and crackers. I will write her prescription for Zofran. She will follow-up with her THERMOSTAT MACHINE TENDER as scheduled. Return instructions given. Discharge Plan Triage Chief Complaint: Nausea/Vomiting ED Provider: Regine Desai Dx/Rx/DC Orders Clinical Impression: First trimester , Vomiting Instructions: 1st Trimester, ED Vomiting (Adult) Prescriptions: New cephalexin 500 mg capsule 500 mg PO Q12 Qty: 10 0RF ondansetron 4 mg tablet,disintegrating 4 mg PO Q8H PRN PRN (Reason: Nausea) Qty: 20 0RF Primary Care Provider: Divine Ruelas Referrals: Suraj,Divine, DO [Primary Care Provider] - [facility] [Non-Staff] - 1 Week if not improving Disposition Disposition: Home, Self Care What to do if you have Problems For any increased pain, shortness of breath, bleeding, nausea or vomiting, chest pain, or any unexpected problems, contact your Primary Care Provider. Call [facility] ([phone]) or report to the closest Emergency Room. Call 911 if necessary. 12/05/22 2332 <Electronically signed by Regine Desai MD> Cosigner Signature (if applicable): CC: Dr. Divine Ruelas DO Signed Yajaira Pearson Work Phone: Start: 02-14-2017 End: 02-14-2017 Emergency Department Summary Comments: See Note; NOTES: [facility] Medical Records Department [address] [place] [address] Emergency Department Summary 02/14/17 2248 MR#: [id number] Acct: [id number] Name: ERIN RAO Rep #: [id number] : 1990 26 From: Praful Martines PCP: Divine Ruelas DO Status: REG ER - ER Visit Summary Date of Service: 02/14/17 Chief Complaint: Headache History of Present Illness: The patient is a 26 F 2 day history of worsening headache. Status post epidural for delivery 3 days ago. Started having headaches the following day. Worse with sitting and standing, improved with laying down. No fevers. No photophobia. Nausea without vomiting. She did start caffeine in the hospital was told to continue at home. They spoke with anesthesia at noon today, Dr. Sanchez. Symptoms worsening therefore they came at this time for a blood patch. She is a , had epidural with her first delivery, no similar symptoms. No past medical history. Physical Examination: General: Alert and oriented 3, no acute distress HEENT: Normocephalic, atraumatic. Moist mucosa membranes Neck: supple, nontender. No meningismus Cardiovascular: Regular rate and rhythm, no murmurs Respiratory: Normal breath sounds, symmetric, no distress Abdomen: Soft, nontender, nondistended Extremities: Nontender, no edema, pulses intact 4 Neuro: no focal neurological deficits. Skin: Puncture noted midline lower thoracic, no erythema. Nontender. Test Results: [] Emergency Department Course and Treatment: Patient with no meningismus. History concerning for post dural headache. I did speak with anesthesia Dr. Bryant, request patient can come back 10 AM in the morning to registration for an outpatient blood patch. I spoke with patient and spouse, they okay with going home and coming back in the morning. She continue caffeine as needed. Treatment Plan: Return tomorrow for blood patch Disposition: Discharge Impression: 1. Postdural headache This note was generated with REMOT[employer] dictation software. It may contain incorrect words, spelling, and punctuation that were not noted in review of the chart prior to signing ED Disposition - Plan for ED Patient: Disposition: Home or Assisted Living Chief Complaint: Headache Diagnosis: Post-dural puncture headache Referrals: Divine Ruelas DO [Primary Care Provider] - Additional Instructions: Return tomorrow to outpatient registration for anesthesia to perform blood patch. What to do if you have Problems For any increased pain, shortness of breath, bleeding, nausea or vomiting, chest pain, or any unexpected problems, contact your Primary Care Provider. Call [facility] ([phone]) or report to the closest Emergency Room. Call 911 if necessary. 02/14/17 4517 <Electronically signed by Praful Martines> Date Praful Martines Cosigner Signature (If Indicated): Date CC: Divine Ruelas DO Yajaira Pearson Start: 09-07-2016 End: 09-07-2016 Emergency Department Summary Comments: See Note; NOTES: [facility] Medical Records Department [address] [place] [address] Emergency Department Summary 09/07/16 1428 MR#: [id number] Acct: [id number] Name: ERIN RAO Rep #: [id number] : 1990 26 From: Keren Muniz PCP: Divine Ruelas DO Status: REG ER - ER Visit Summary Date of Service: 09/07/16 Chief Complaint: [Vomiting diarrhea] History of Present Illness: The patient is a 26 F [who presents the emergency department with vomiting and diarrhea that started yesterday afternoon. She is 16 weeks . She has had some cramping in her lower back intermittently last night she did have some lower abdominal cramping that resolved. No bleeding or leakage of fluid. She has had 5 episodes of vomiting and approximately 6-7 episodes of watery diarrhea. She is . She is followed by Dr. Pieter Steve. Urine has been unremarkable.] Physical Examination: [] Blood pressure is 96/66 heart rate 116 Well-nourished young female in no acute distress Dry mucous membranes Regular tachycardic rhythm with no murmurs rubs or gallops Clear to auscultation bilaterally Abdomen soft nontender gravid normal bowel sounds Alert and oriented 3 with no motor sensory deficits Test Results: [] Emergency Department Course and Treatment: [She was given 2 L of fluid Reglan and Benadryl. Screening labs were unremarkable except for mild neutrophilic shift without leukocytosis. Urinalysis was positive for ketones. After Reglan and Benadryl she was able to tolerate crackers and water. I spoke with Dr. Olguin. Patient will be discharged home with a prescription for Zofran she will drink plenty of fluids and bland diet she was given precautions for which return and will follow up with Dr. Grace Steve] Treatment Plan: [] Disposition: [discharge] Impression: [Gastroenteritis, dehydration, second trimester ] ED Disposition - Plan for ED Patient: Chief Complaint: Nausea/Vomiting/Diarrhea Instructions: ED Vomiting Diarrhea Nonspecific Ad Prescriptions: Ondansetron [Zofran Odt] 8 mg PO Q8H PRN PRN #12 PRN Reason: Nausea Referrals: Ruby Lentz MD [STAFF PHYSICIAN] - 3-5 Days What to do if you have Problems For any increased pain, shortness of breath, bleeding, nausea or vomiting, chest pain, or any unexpected problems, contact your Primary Care Provider. Call [employer] [facility] ([phone]) or report to the closest Emergency Room. Call 911 if necessary. 09/07/16 9887 <Electronically signed by Keren Muniz > Date Keren Martínez Signature (If Indicated): CC: Divine Ruelas DO Yajaira Pearson Start: 09-07-2016 End: 09-07-2016 Discharge Instruction Comments: See Note; NOTES: [facility] Medical Records Department [address] [facility] [place] [address] Discharge Instruction 09/07/16 1426 MR#: [id number] Acct: [id number] Name: ERIN RAO Rep #: [id number] : 1990 26 From: Keren Muniz PCP: Divine Ruelas DO Status: REG ER ED Disposition - Plan for ED Patient: Chief Complaint: Nausea/Vomiting/Diarrhea Instructions: ED Vomiting Diarrhea Nonspecific Ad Prescriptions: Ondansetron [Zofran Odt] 8 mg PO Q8H PRN PRN #12 PRN Reason: Nausea Referrals: Ruby Lentz MD [STAFF PHYSICIAN] - 3-5 Days What to do if you have Problems For any increased pain, shortness of breath, bleeding, nausea or vomiting, chest pain, or any unexpected problems, contact your Primary Care Provider. Call [facility] ([phone]) or report to the closest Emergency Room. Call 911 if necessary. 09/07/16 1428 <Electronically signed by Keren Muniz > Date Keren Martínez Signature (If Indicated): CC: Divine Ruelas DO Yajaira Pearson Start: 07-31-2016 End: 07-31-2016 Emergency Department Summary Comments: See Note; NOTES: [facility] Medical Records Department [address] [place] [address] Emergency Department Summary MR#: [id number] Acct: [id number] Name: ERIN RAO Rep #: [id number] : 1990 26 From: Surjit Kwok MD PCP: Divine Ruelas DO Status: DEP ER DATE OF SERVICE: 07/30/2016 HISTORY OF PRESENT ILLNESS: A 26-year-old woman who has had problems with vomiting for approximately 5-6 weeks. She is 11 weeks' gestation. She initially was on Zofran when she was under the care of Dr. Horan. When her care was transferred to Dr. Ruby Lentz, she discontinued the Zofran. The patient presents with 3-5 emesis a day. She now states she cannot even keep liquids down. She complains of thirst, dry mouth and lightheadedness. She denies any other symptoms. PAST MEDICAL HISTORY: Kidney stones and spontaneous miscarriage with second . JEWELRY FACER: Dr. Ruby Lentz. REVIEW OF SYSTEMS: Remarkable for nausea, vomiting, frequency and generalized weakness. PHYSICAL EXAMINATION: VITAL SIGNS: Unremarkable. HEENT: Remarkable for dry mucosa. NECK: Trachea is midline. LUNGS: Clear to auscultation. HEART: Regular. ABDOMEN: Soft, nontender. SKIN: She has no dermatologic lesions noted. NEUROLOGIC: She has a nonfocal neurologic exam. EMERGENCY DEPARTMENT COURSE: Urine is remarkable for ketones. The patient was treated with Reglan and has passed p.o. challenge. PLAN: Discharge with prescription for Reglan and prescription for Zofran. IMPRESSION: 1. Hyperemesis gravidarum. 2. Ketosis. MD Maritza Frazier C: RUBY López: SAIM JOB: [id number] 07/31/16 0202 <Electronically signed by Surjit Kwok MD> Date Surjit Kwok MD Cosigner Signature (If Indicated): Date CC: Divine Ruelas DO; Ruby Lentz MD Date Dictated: 07/31/16133 Date Transcribed: 07/31/16133 Supply Person: Signed Yajaira Pearson Start: 07-31-2016 End: 07-31-2016 Discharge Instruction Comments: See Note; NOTES: [facility] Medical Records Department [address] [place] [address] Discharge Instruction 07/31/169 MR#: [id number] Acct: [id number] Name: ERIN RAO Rep #: [id number] : 1990 26 From: Surjit Kwok MD PCP: Divine Ruelas DO Status: REG ER ED Disposition - Plan for ED Patient: Disposition: Home or Assisted Living Chief Complaint: Nausea/Vomiting Instructions: Severe Morning Sickness (Hyperemesis Gravidarum) Prescriptions: Ondansetron [Zofran] 8 mg PO Q8H PRN PRN #10 tablet PRN Reason: Nausea/Vomiting Metoclopramide [Reglan] 10 mg PO 4X/DAY #20 tablet Referrals: Divine Ruelas DO [Primary Care Provider] - Ruby Lentz MD [STAFF PHYSICIAN] - 3-5 Days if not improving What to do if you have Problems For any increased pain, shortness of breath, bleeding, nausea or vomiting, chest pain, or any unexpected problems, contact your Primary Care Provider. Call [facility] ([phone]) or report to the closest Emergency Room. Call 911 if necessary. 07/31/16131 <Electronically signed by Surjit Kwok MD> Date Surjti Kwok MD Cosigner Signature (If Indicated): Date CC: Divinetyler Lozano Start: 07-19-2016 End: 07-19-2016 Emergency Department Summary Comments: See Note; NOTES: [facility] Medical Records Department [address] [place] [address] Emergency Department Summary MR#: [id number] Acct: [id number] Name: ERIN RAO Rep #: [id number] : 1990 26 From: Regine Desai MD PCP: Divine Ruelas DO Status: DEP ER DATE OF SERVICE: 07/18/2016 CHIEF COMPLAINT: Nausea and vomiting. RIVERA HISTORY: The patient is a 26-year-old female who is roughly 10 weeks states for the last 7 weeks, she has had problems with nausea and vomiting. She feels like it is getting worse and she thinks she is dehydrated. She has Zofran at home, but does not feel that it helps. She did not take it today. She is AB1. She is having no abdominal pain or cramping. No spotting or bleeding. She has noted decreased urine output. PHYSICAL EXAMINATION: VITAL SIGNS: Unremarkable. GENERAL: The patient is sitting in a bedside chair. She is in no acute distress. HEAD AND NECK: She has mildly dry mucous membranes. HEART: Regular. LUNGS: Clear. ABDOMEN: Soft and nontender. She has active bowel sounds throughout. HOSPITAL COURSE: The patient was given IV fluids along with a small dose of IV Phenergan. Chemistry studies were obtained and normal. At this time, the patient will be discharged with a prescription for Phenergan. She can use this in addition to Zofran. She is to follow up with Dr. Lentz. DISPOSITION: Discharge. IMPRESSION: 1. First trimester . 2. Nausea. Regine Desai MD T: NTS JOB: [id number] 07/19/16 0043 <Electronically signed by Regine Desai MD> Date Regine Desai MD Cosigner Signature (If Indicated): Date CC: Divine Ruleas DO Date Dictated: 07/18/162144 Date Transcribed: 07/18/162144 Supply Person: Signed Yajaira Pearson Start: 07-18-2016 End: 07-18-2016 Discharge Instruction Comments: See Note; NOTES: [facility] Medical Records Department [address] [place] [address] Discharge Instruction 07/18/162131 MR#: [id number] Acct: [id number] Name: ERIN RAO Rep #: [id number] : 1990 26 From: Regine Desai MD PCP: Divine Ruelas DO Status: REG ER ED Disposition - Plan for ED Patient: Disposition: Home or Assisted Living Chief Complaint: Nausea/Vomiting Instructions: ED Preg Morning Sickness Prescriptions: ProMETHAzine [Phenergan] 0.5 - 1 tab PO Q6H PRN PRN #20 tablet PRN Reason: Nausea Referrals: Divine Ruelas DO [Primary Care Provider] - Ruby Lentz MD [STAFF PHYSICIAN] - What to do if you have Problems For any increased pain, shortness of breath, bleeding, nausea or vomiting, chest pain, or any unexpected problems, contact your Primary Care Provider. Call [facility] ([phone]) or report to the closest Emergency Room. Call 911 if necessary. 07/18/162134 <Electronically signed by Regine Desai MD> Date Regine Desai MD Cosigner Signature (If Indicated): Date CC: Divine Ruelas DO Yajaira Pearson Start: 07-01-2016 End: 07-01-2016 Emergency Department Summary Comments: See Note; NOTES: [facility] Medical Records Department [address] [place] [address] Emergency Department Summary MR#: [id number] Acct: [id number] Name: ERIN RAO Rep #: [id number] : 1990 26 From: Ashley Daly MD PCP: Divine Ruelas DO Status: DEP ER DATE OF SERVICE: 06/30/2016 CHIEF COMPLAINT: Nausea and vomiting. HISTORY OF PRESENT ILLNESS: This is a 26-year-old female who is about 7 weeks' by dates and ultrasound, has been having hyperemesis with this . She was here a few days ago to get IV fluids and she has both Phenergan and Zofran at home, but continues to have vomiting and is worried she is getting dehydrated, so she came in again, she is not having any dysuria or frequency, but she does note some mild lower abdominal cramping, no bleeding or discharge. PHYSICAL EXAMINATION: VITAL SIGNS: Noted and unremarkable. GENERAL: She looks well. She is sitting quietly in bed. HEENT: Her mucous membranes are moist. ABDOMEN: Soft and nontender. HEART: Rate regular without murmurs. SKIN: Warm and dry. CLINICAL COURSE AND DECISION MAKING: The patient received a couple of liters of IV fluid and she also had some IV Zofran and on repeat evaluation, was not nauseous, her stomach felt subtle. Urinalysis was positive for leukocyte esterase, trace ketones and rare bacteria. I discussed these findings with Dr. Ko who agrees, it is probably not worth treating for UTI. I did send for culture and the patient was discharged in good condition. DIAGNOSIS: Hyperemesis gravidarum. MD Maritza Stone C: RUBY LENTZ M.D. T: SAMI JOB: [id number] 07/01/16 1539 <Electronically signed by Ashley Daly MD> Date Ashley Daly MD Cosigner Signature (If Indicated): Date CC: Divine Ruelas DO; Ruby Lentz MD Date Dictated: 06/30/161609 Date Transcribed: 06/30/161609 Supply Person: Signed Yajaira Pearson Start: 06-30-2016 End: 06-30-2016 Discharge Instruction Comments: See Note; NOTES: [facility] Medical Records Department [address] [place] [address] Discharge Instruction 06/30/16 1609 MR#: [id number] Acct: [id number] Name: ERIN RAO Rep #: [id number] : 1990 26 From: Ashley Daly MD PCP: Divine Ruelas DO Status: REG ER ED Disposition - Plan for ED Patient: Chief Complaint: Abd Pain Instructions: Severe Morning Sickness (Hyperemesis Gravidarum) Referrals: Divine Ruelas DO [Primary Care Provider] - Ruby Lentz MD [STAFF PHYSICIAN] - What to do if you have Problems For any increased pain, shortness of breath, bleeding, nausea or vomiting, chest pain, or any unexpected problems, contact your Primary Care Provider. Call [facility] ([phone]) or report to the closest Emergency Room. Call 911 if necessary. 06/30/161610 <Electronically signed by Ashley Daly MD> Date Ashley Daly MD Cosigner Signature (If Indicated): Date CC: Divine Lozano Start: 06-25-2016 End: 06-25-2016 Emergency Department Summary Comments: See Note; NOTES: [facility] Medical Records Department [address] [place] [address] Emergency Department Summary MR#: [id number] Acct: [id number] Name: ERIN RAO Rep #: [id number] : 1990 26 From: Regine Desai MD PCP: Divine Ruelas DO Status: [facility] DATE OF SERVICE: 06/25/2016 CHIEF COMPLAINT: Nausea and vomiting. RIVERA HISTORY: The patient is a 26-year-old female who is roughly 6 weeks . She reports nausea for several weeks with decreased p.o. intake. She did vomit today. She is complaining of cramping in her neck and her low back and thinks that she is getting dehydrated. She does have Zofran and Phenergan at home, but has not been using them. PHYSICAL EXAMINATION: VITAL SIGNS: Unremarkable. She does have dry mucous membranes. HEART: Regular. LUNGS: Clear. ABDOMEN: Soft, nontender. She has hypoactive bowel sounds. HOSPITAL COURSE: The patient was given 2 liters of IV fluid and Zofran. Chemistry studies are grossly unremarkable. Glucose is 122. On repeat evaluation, she is starting to feel improved. She will be discharged with instructions to follow up with Dr. Horan her OB and she does have Zofran and Phenergan at home to use. DISPOSITION: Discharge. IMPRESSION: 1. Vomiting secondary to early . Regine Desai MD T: NTS JOB: [id number] 06/25/16 2303 <Electronically signed by Regine Desai MD> Date Regine Desai MD Cosigner Signature (If Indicated): Date CC: Divine Ruelas DO Date Dictated: 06/25/162057 Date Transcribed: 06/25/162057 Supply Person: Signed Yajaira Pearson Start: 06-25-2016 End: 06-25-2016 Discharge Instruction Comments: See Note; NOTES: [facility] Medical Records Department [address] [place] [address] Discharge Instruction 06/25/162050 MR#: [id number] Acct: [id number] Name: ERIN RAO Rep #: [id number] : 1990 26 From: Regine Desai MD PCP: Divine Ruelas DO Status: REG ER ED Disposition - Plan for ED Patient: Disposition: Home or Assisted Living Chief Complaint: Nausea/Vomiting Instructions: ED Nausea Vomiting Referrals: Alla Horan MD [STAFF PHYSICIAN] - What to do if you have Problems For any increased pain, shortness of breath, bleeding, nausea or vomiting, chest pain, or any unexpected problems, contact your Primary Care Provider. Call [facility] ([phone]) or report to the closest Emergency Room. Call 911 if necessary. 06/25/162050 <Electronically signed by Regine Desai MD> Date Regine Desai MD Cosigner Signature (If Indicated): Date CC: Divine Ruelas DO Yajaira Pearson Start: 01-25-2016 End: 01-25-2016 Discharge Instruction Comments: See Note; NOTES: [facility] Medical Records Department [address] [place] [address] Discharge Instruction 01/25/16 0059 MR#: [id number] Acct: [id number] Name: ERIN RAO Rep #: [id number] : 1990 25 From: Surjit Kwok MD PCP: Divine Ruelas DO Status: REG ER ED Disposition - Plan for ED Patient: Disposition: Home or Assisted Living Chief Complaint: Instructions: ED Miscarriage Inevitable Referrals: Divine Ruelas DO [Primary Care Provider] - Ruby Lentz MD [STAFF PHYSICIAN] - As soon as possible Additional Instructions: Call Dr. Grace Steve's office in the morning to arrange for follow-up this week What to do if you have Problems For any increased pain, shortness of breath, bleeding, nausea or vomiting, chest pain, or any unexpected problems, contact your Primary Care Provider. Call [facility] ([phone]) or report to the closest Emergency Room. Call 911 if necessary. 01/25/16 0100 <Electronically signed by Surjit Kwok MD> Date Surjit Kwok MD Cosigner Signature (If Indicated): Date CC: Divine Ruelas DO Yajaira Pearson Start: 01-25-2016 End: 01-25-2016 Emergency Department Summary Comments: See Note; NOTES: [facility] Medical Records Department [address] [place] [address] Emergency Department Summary 01/25/16 0053 MR#: [id number] Acct: [id number] Name: ERIN RAO Rep #: [id number] : 1990 25 From: Surjit Kwok MD PCP: Divine Ruelas DO Status: REG ER - ER Visit Summary Date of Service: 01/25/16 Chief Complaint: Midline low back pain described as cramping similar to menses and vaginal bleeding. History of Present Illness: The patient is a 25 F Ab1 (spontaneous) who presents with chief complaint of vaginal bleeding and low cramping back pain similar to menses.Patient did have an ultrasound which revealed a single live intrauterine with heart tone. Based on dates patient should be 7 weeks 5 days. This is her third . Patient states she has Rh- blood. She does complain of frequency without urgency, hematuria or dysuria. She denies nausea, vomiting diarrhea. She denies history of trauma. She denies any skin lesions. Physical Examination: Vision appears in no distress. Vital signs are noted. HEENT exam is unremarkable. Trach is midline. Lungs are clear to auscultation. Heart is regular without murmur, gallop or rub heard abdomen is soft and nontender. There is no CVA tenderness noted. There is no evidence of hernia. Pelvic exam was performed and reveals minimal old blood with mild active bleeding. There is a positive [place] sign. Uterus is slightly larger than then estimated gestational age. Uterus is slightly tender. There are no adnexal masses or tenderness noted. Test Results: Transvaginal ultrasound was obtained and no heartbeat was noted. Estimated gestational age 6 weeks 0 days. Quantitative hCG is 29 94. RhoGam protocol was initiated. Patient will need treatment prior to discharge. Emergency Department Course and Treatment: This was discussed with Dr. Matt lane process improvement consultant for Dr. Grace Steve. She instructed me that have the patient contact Dr. Pieter Steve in the morning for follow-up this week Disposition: Discharge to home after administration of RhoGam Impression: Vaginal bleeding secondary to demise ED Disposition - Plan for ED Patient: Chief Complaint: Referrals: Divine Ruelas DO [Primary Care Provider] - What to do if you have Problems For any increased pain, shortness of breath, bleeding, nausea or vomiting, chest pain, or any unexpected problems, contact your Primary Care Provider. Call [facility] ([phone]) or report to the closest Emergency Room. Call 911 if necessary. 01/25/16 0059 <Electronically signed by Surjit Kwok MD> Date Surjit Kwok MD Cosigner Signature (If Indicated): Date CC: Divine Ruelas DO; Ruby Lentz MD Yajaira Pearson Start: 01-24-2016 End: 01-25-2016 Transvaginal w/Preg US Comments: See Note; NOTES: [facility] Imaging Services [address] [place], [place] [address] [address] Jem 4d Transvaginal w/Preg US MR#: [id number] Acct: [id number] Name: ERIN RAO Rep #: [id number] : 1990 F 25 From: Rosanna Landry MD PCP: Divine Ruelas DO Status: REG ER Study: Transvaginal w/Preg US Date of Exam: 01/24/16 Exam# [id number] Ordering Dr: Surjit Kwok MD STUDY: FIRST TRIMESTER OBSTETRICAL ULTRASOUND REASON FOR EXAM: Female, 25 years old. Bleeding and back cramps I'm given a history that previously cardiac activity was present for this . LMP: December 02, 2015 TECHNIQUE: Transvaginal PRIOR ULTRASOUND: None. FINDINGS: There is visualization of a single gestational sac in a normal intrauterine position. The mean sac diameter (MSD) measures 1.04 cm, indicating an estimated gestational age (EGA) of 5 weeks, 5 days. The gestational sac shape is within normal limits. There is a visualized yolk sac. The yolk sac measures 0.17 cm. The placenta is non-visualized. There is visualization of a live embryo. The crown-rump length (CRL) measures 0.4 cm, indicating an estimated gestational age (EGA) of 6 weeks, 1 days. Cardiac activity was not demonstrated on this study . Generally at 6 weeks cardiac activity becomes visible. The lack thereof may represent demise though the age of the pole is borderline for the presence of cardiac activity. It is concerning that previously there was reported cardiac activity and therefore I am more suspicious that this represents demise of an early . The estimated gestation age (EGA) by LMP is 7 weeks, 4 days. The estimated date of delivery (BEAU) by LMP is September 07, 2016. The estimated gestation age (EGA) by US is 6 weeks, 0 days. The estimated date of delivery (BEAU) by US is September 18, 2016. The uterus measures 10 x 6.5 x 4.4. There is no demonstrated uterine fibroid. The cervix is closed. The right ovary was not visualized. There is no visualized right adnexal mass or complex lesion. The left ovary measures 2.6 x 2 x 1.4 cm. Dominant follicle measures 1.8 x 1.7 x 1.1 cm. There is no visualized left adnexal mass or complex lesion. There is no fluid in the cul de sac. US/Transvaginal w/Preg US IMPRESSION: age by ultrasound is approximately 6 weeks 0 days. Cardiac activity is generally present by 6 weeks but this age is borderline, yet I am given history that there was cardiac activity previously detected. Therefore this is suspicious for demise. Electronically Signed: Rosanna Landry MD at 23:54 EST Tel , Service support [phone], CC: Divine Ruelas DO; Surjit Kwok MD Supply Person: Signed Yajaira Pearson H/O: surgery Tonsillectomy Zina Oliveira PN H/O: surgery Tonsillectomy Tenzin Oliveira PN H/O: surgery Tonsillectomy Lora Boyer Plan of Treatment Date Care Activity Detail Author Start: 11-08-2021 Procedure Education Eprescribed prescriptions (G8553) [facility] Work Phone: Start: 11-08-2021 Provider Instructions for Treatment Follow up in 1 year or as needed [facility] Work Phone: Start: 07-12-2020 Procedure Education Eprescribed prescriptions (G8553) [facility]; [facility] Work Phone: Start: 07-02-2020 Procedure Education Eprescribed prescriptions (G8553) [facility]; [facility] Work Phone: Start: 07-02-2020 Provider Instructions for Treatment Follow up in 10 days front office assistant to schedule [facility] Work Phone: Start: 08-20-2018 Procedure Education Eprescribed prescriptions (G8553) [facility] Work Phone: Start: 08-20-2018 Provider Instructions for Treatment Follow up tomorrow, as needed [facility] Work Phone: Start: 08-20-2018 Blood count complete auto&auto difrntl wbc CBC, Platelets & Auto Diff (08550) [facility] Work Phone: Start: 08-20-2018 Comprehensive metabolic panel Metabolic Panel, [facility] (95404) [facility] Work Phone: Start: 01-12-2016 Procedure Education Eprescribed prescriptions (G8553) [facility] Work Phone: Start: 01-12-2016 Provider Instructions for Treatment Follow up in 2 weeks [facility] Work Phone: Start: 04-19-2010 Patient Education Water in diet, brief version [facility] Work Phone: Start: 04-19-2010 Provider Instructions for Treatment follow up for recheck urine 1 week after complete antibiotic [facility] Work Phone: Start: 02-02-2009 Provider Instructions for Treatment *URI Treatment [facility] Work Phone: Start: 02-02-2009 Heterophile antibodies screen MONOSPOT TEST (87332) [facility] Work Phone: Start: 02-02-2009 Iaadiadoo streptococcus group a Rapid Strep Test, Office (51371) [facility]; [facility] Work Phone: Start: 02-02-2009 S. pyogenes Ag IA Ql (Unsp spec) Rapid Strep Test, Office (89023) [facility] Work Phone: Start: 10-27-2008 Patient Education Sore throat: diagnosis and treatment [facility] Work Phone: Start: 10-27-2008 Provider Instructions for Treatment [facility] Work Phone: Start: 07-02-2008 Comprehensive metabolic panel Metabolic Panel, [facility] (78398) [facility] Work Phone: Start: 07-02-2008 Assay of parathormone PTH (PARATHORMONE) (91635) [facility] Work Phone: Start: 07-02-2008 Iaadiadoo streptococcus group a Rapid Strep Test, Office (32597) [facility]; [facility] Work Phone: Start: 07-02-2008 S. pyogenes Ag IA Ql (Unsp spec) Rapid Strep Test, Office (94202) [facility] Work Phone: Start: 07-02-2008 Provider Instructions for Treatment *URI Treatment [facility] Work Phone: Start: 08-20-2007 Cul bact xcpt urine blood/stool aerobic isol FERNANDO CULTURE-OTHER (08796) [facility] Work Phone: Start: 08-20-2007 Provider Instructions for Treatment [facility] Work Phone: Start: 08-06-2007 Heterophile antibodies screen MONOSPOT TEST (28408) [facility] Work Phone: Start: 08-06-2007 Cul bact xcpt urine blood/stool aerobic isol FERNANDO CULTURE-OTHER (34559) [facility] Work Phone: Start: 08-06-2007 Provider Instructions for Treatment [facility] Work Phone: Start: 05-14-2007 Blood count manual cell count each CBC with manual diff (40120) [facility] Work Phone: Start: 05-14-2007 Comprehensive metabolic panel Metabolic Panel, [facility] (58810) [facility] Work Phone: Start: 10-04-2006 Provider Instructions for Treatment HPV Vaccine Information 2005 [facility] Work Phone: [facility] Work [facility]: [facility] Work Phone: [facility] Work Phone: [facility] Work Phone: [facility] Work Phone: [facility] Work Phone: [facility] Work Phone: [facility] Work Phone: Payers Date Payer Category Payer Unknown [id number] 2008 Unknown [id number] 2005 Unknown [id number] 1988 Unknown [id number] 1990 Unknown [id number] 1990 Unknown [id number] Unknown [id number] Unknown Kimberly BC/BS Social History Date Type Detail Facility [facility]affe[facility] Work Phone: Progress note 11-25-2020 Note Date & Type Note Facility 11-25-2020 Note HNO ID: [id number] Author: Yvonne Pat MD Service: ? Author Type: Physician Type: Progress Notes Filed: 11/25/2020 3:35 PM Note Text: VIRTUAL VISIT PROGRESS NOTE This is a virtual visit using [email or web address] video visit. It required patient-provider interaction for the medical decision making as documented below. Erin Rao is a 30 year old female seen for pre-op. Briefly, Erin has a hx of complex ovarian cyst on outside imaging. Intermittent pain. PMH notable for factor V HISTORY REVIEWED (electronic chart updated): PAST MEDICAL HISTORY Diagnosis Date - History of factor V Leiden mutation - Ovarian cyst PAST SURGICAL HISTORY Procedure Laterality Date - EXTRACTION ERUPTED TOOTH/EXR - PAST SURGICAL HISTORY OF Kidney stone - TONSILLECTOMY HX FAMILY HISTORY Problem Relation Age of Onset - Anesthesia Problems No Family History - Blood Clots No Family History - Clotting Disorder No Family History Social History Tobacco Use - Smoking status: Never Smoker - Smokeless tobacco: Never Used Substance Use Topics - Alcohol use: Yes Comment: maybe a drink a month - Drug use: Never Current Outpatient Medications Medication Sig - cetirizine (ZYRTEC) 10 mg tablet Take by mouth. No current facility-administered medications for this visit. ALLERGIES Allergen Reactions - Animal Dander Intolerance - Ruiz Intolerance - Seasonal Allergies Other: See Comments Nasal congestion PHYSICAL EXAMINATION: ASSESSMENT: (N83.201) Cyst of right ovary (primary encounter diagnosis) (Z01.818) Pre-op evaluation PLAN: Today we reviewed surgery in detail. We discussed R/B/A. Reviewed risks including, but not limited to, bleeding, infection, damage to surrounding structures, nerves, vessels, possible laparotomy, possible blood transfusion, and possible oophorectomy. All questions answered. Informed consent reviewed - pt to sign DOS. Factor V -- pre-op subq heparin Repeat US to assess for interval change. There are no Patient Instructions on file for this visit. Yvonne Pat MD [facility] Progress note 11-22-2020 Note Date & Type Note Facility 11-22-2020 Note HNO ID: [id number] Author: Blanca Cedeno RN Service: ? Author Type: Registered Nurse Type: Progress Notes Filed: 11/22/2020 3:39 PM Note Text: DATE OF SERVICE: 11/22/2020 PROBLEM: Erin Rao presents for pre-op teaching. PRE-OP DIAGNOSIS: Cyst on ovary SCHEDULED SURGERY AND DATE: 12/06/20 LAPAROSCOPY WITH EXCISION OF ENDOMETRIAL LESIONS PELVIS PRIMARY SURGEON: Yvonne Pat MD NURSING PREOP ASSESSMENT: Fevers, chills, cough, or nasal congestion: No Vaginal itching, burning, discharge, or odor: No Pain with urination, frequency, urgency, cloudy or foul smelling urine: No If yes to any of the above then MD notified: Not Applicable ADVANCED CARE PLANNING: Does the patient have an advanced directive: No Does [facility] have a copy of the patient's advanced directive: No Was advanced directive given to the patient: No PATIENT LEARNING ASSESSMENT: Individual patient/family learning needs evaluated and addressed: Yes Cognitive ability: Alert and oriented Motivation to learn: Eager Factors affecting learning: None Physical limitations affecting learning: None Patient learns best by: Individual Instruction Written Instruction - Hand-outs Verbal Instruction Method of instruction: Individual instruction Written instruction - handouts Verbal instruction Instructions provided to: Patient via telephone. Written material provided prior to education appointment. Family support: Unable to assess - Family not present PRE- AND POST-OPERATIVE TEACHING Pre-operative teaching and supplemental material provided and reviewed with patient: Your Surgical Guide Book Map Written pre-op and post-op instructions Antibacterial soap: given to patient prior to preop teaching appointment Pre-operative instructions provided and reviewed with patient/family: No eating, drinking, or smoking after midnight prior to surgery unless otherwise directed No alcohol the day before surgery Medications as prescribed by anesthesia, internal medicine, surgeon, or PEDIATRICIAN ACTIVE PRACTICE Stop NSAIDs, Aspirin (ASA), vitamins, herbal supplements, herbal teas, and diet pills 7-10 days prior to surgery OK to take tylenol prn pain unless otherwise directed by physician Call surgery coordinators if any other questions about surgery date or pre-op appointments Bowel prep instructions: NPO after midnight, have up to Day of surgery instructions provided and reviewed with patient/family: Arrival time (call surgical coordinators on the office day prior to surgery for verification) No jewelry, body piercing, makeup, contacts, lotions, nail liberian on fingers, or anything in hair on arrival to surgery Wear low healed shoes and loose fitting clothing Leave all valuables at home or with a family member Directions to [facility] and the [facility] Parking/parking validation on the day prior to surgery Admission/check in (desk P-20 or J1-1) Holding area Placement of IV Surgical positioning Family waiting area Surgical recovery room Post-operative instructions provided and reviewed with patient/family: SEE PATIENT INSTRUCTION SECTION FOR DETAILS. ACTIVITY - No heavy lifting (>5-10 lbs), no pushing/pulling, OK to climb stairs DRIVING - No driving for 3 weeks unless prior approval from MD, OK to ride in a car. DIET - Advance diet as tolerated and as ordered by MD, drink 8 glasses of water a day, eat a diet high in protein and fiber unless otherwise directed by MD. CATHETER - Will be inserted during surgery, you may go home with a catheter for 7-10 days and will have to come back to the office for a voiding trial, UTI symptoms reviewed and patient instructed to notify MD of any of these symptoms. INCISION CARE - Keep incision clean and dry, addie to be removed 7-10 days after surgery, steristrips do not need to be removed by MD BATHING - OK to shower after surgery unless otherwise directed by MD, no tub baths. PAIN MEDICATION - IV pain medication after surgery, IV JUNIOR FINANCIAL ANALYST if ordered by MD, discharged home with a prescription for PO pain medication, pain management after surgery, side effects of pain medication (including constipation, dizziness, drowsiness, and medication interactions). VAGINAL CARE - Pelvic rest x6 weeks unless otherwise directed by MD. DVT PROPHYLAXIS - Early ambulation, SCDs, injectable anticoagulants (heparin, lovenox, etc) RESPIRATORY - Incentive spirometer, coughing/deep breathing exercises, ambulation. RETURN TO WORK - As directed by physician, please send any FMLA papers to physician's field secretary. SYMPTOMS TO NOTIFY MD - Fever, chills, nausea, vomiting, increased or severe pain, heavy vaginal bleeding, foul smelling vaginal drainage, pain or swelling in extremities. URGENT SYMPTOMS - Call 911 or go to ER if any shortness of breath, difficulty breathing, or chest pain. HOW TO CONTACT PHYSICIAN - Physician's office phone number given to kumar (more content not included)... [facility] Progress note 08-17-2020 Note Date & Type Note Facility 08-17-2020 Note HNO ID: [id number] Author: Yvonne Pat MD Service: ? Author Type: Physician Type: Progress Notes Filed: 08/17/2020 7:57 AM Note Text: Erin Rao is a 30 year old female who presents for ovarian cyst. Complaints of bloating. HPI: 30yo with ovarian cyst. Reports episodes of abd/pelvic pain and bloating starting last Oct with left ovarian cyst noted. Labs normal per pt. Occasional pain. Menses reg cycles No recent change in flow +back pain just before menses. Last pap: unknown PAST MEDICAL HISTORY Diagnosis Date - Ovarian cyst PAST SURGICAL HISTORY Procedure Laterality Date - PAST SURGICAL HISTORY OF Kidney stone History reviewed. No pertinent family history. Social History Tobacco Use - Smoking status: Never Smoker - Smokeless tobacco: Never Used Substance Use Topics - Alcohol use: Yes Comment: social - Drug use: Never No current outpatient medications on file. No current facility-administered medications for this visit. Allergies As of Date: 08/17/2020 Allergen Noted Reaction SEASONAL ALLERGIES 03/06/2012 Other: See Comments Fully Assessed 07/19/2018 EXAM: BP 110/60 Ht 5' 2 (1.58m) Wt 129 lb (58.5kg) LMP 08/05/2020 BMI 23.59 kg/(m2). GENERAL: pleasant, female in no apparent distress HEENT: Normocephalic, atraumatic CHEST: Normal inspiratory effort PELVIC: deferred NEURO: alert and oriented x3,exam grossly non-focal EXTREMITIES: normal ASSESSMENT AND PLAN: Encounter Diagnosis ICD-10-CM 1. Cyst of ovary, unspecified laterality N83.209 CA 125 BLD CEA BLD Reviewed ovarian cysts and potential etiologies. Labs ordered. Recommend excision. Reviewed procedure including R/B/A and perioperative expectations. Surg request placed. Medical Decision Making: Problems: Moderate: New problem with uncertain prognosis Data: Unique test(s) ordered: 3+ Risk: Moderate: Moderate risk from testing/treatment Medical Decision Making Level: 4 - Moderate Yvonne Pat MD [facility] Evaluation + Plan note Note Date & Type Note Facility Evaluation + Plan note No data available for this section [facility] Hospital Discharge instructions Note Date & Type Note Facility Hospital Discharge instructions No data available for this section [facility] Instructions Note Date & Type Note Facility [facility] Work Phone: Instructions Note Date & Type Note Facility [facility] Work Phone: Instructions Note Date & Type Note Facility [facility] Work Phone: Instructions Note Date & Type Note Facility [facility] Work Phone: Progress note Note Date & Type Note Facility Progress note No data available for this section [facility] Summary Purpose Family History Unknown Family Member Name Dates Details Father Comments:In good health Status:Active Mother Comments:asthma Status:Active Sister 1 Comments:asthma Status:Active Unknown Family Member Name Dates Details Father Comments:In good health Status:Active Mother Comments:asthma Status:Active Sister 1 Comments:asthma Status:Active Unknown Family Member Name Dates Details Father Comments:In good health Status:Active Mother Comments:asthma Status:Active Sister 1 Comments:asthma Status:Active Unknown Family Member Name Dates Details Father Comments:In good health Status:Active Mother Comments:asthma Status:Active Sister 1 Comments:asthma Status:Active Unknown Family Member Name Dates Details Father Comments:In good health Status:Active Mother Comments:asthma Status:Active Sister 1 Comments:asthma Status:Active Advance Directives No Advanced Directives Records FoundNo Advanced Directives Records FoundNo Advanced Directives Records FoundNo Advanced Directives Records Found Instructions Name Dates Details How to access health informa tion online Indication:BMI 21.0-21.9, adult Start:20-Aug-2018 Instruction Type:Patient Education How to access health informa tion online - Detail Indication:BMI 21.0-21.9, adult Start:20-Aug-2018 Instruction Type:Patient Education Patient Instructions Indication:BMI 21.0-21.9, adult Start:20-Aug-2018 Instruction Type:Provider Instructions for Treatment How to access health informa tion online Indication:Cough Start:12-Jan-2016 Instruction Type:Patient Education How to access health informa tion online - Detail Indication:Cough Start:12-Jan-2016 Instruction Type:Patient Education Patient Instructions Indication:Cough Start:12-Jan-2016 Instruction Type:Provider Instructions for Treatment Sore throat: diagnosis and treatment Indication:Pharyngitis, acute Start:02-Feb-2009 Instruction Type:Patient Education Sore throat: diagnosis and treatment Indication:Throat pain Start:28-Dec-2008 Instruction Type:Patient Education Sore throat: diagnosis and treatment Indication:Pharyngitis, acute Start:02-Jul-2008 Instruction Type:Patient Education Additional Source Comments INFORMATION SOURCE (unrecogn ized section and content) DATE CREATED AUTHOR AUTHOR'S ORGANIZ ATION 04/06/2021 [facility] DATE CREATED AUTHOR AUTHOR'S ORGANIZ ATION 11/08/2021 [facility] DATE CREATED AUTHOR AUTHOR'S ORGANIZ ATION 03/13/2023 [facility] FOR RECORDS PERTAINING TO PATIENTS WHO ARE OR HAVE BEEN ENROLLED IN A CHEMICAL DEPENDENCY/SUBSTANCEABUSE PROGRAM, SOME INFORMATION MAY BE OMITTED. This clinical summary was aggregated from multiple sources. Caution should be exercised in using it in the provision of clinical care. This summary normalizes information from multiple sources, and as a consequence, information in this document may materially change the coding, format and clinical context of patient data. In addition, data may be omitted in some cases. CLINICAL DECISIONS SHOULD BE BASED ON THE PRIMARY CLINICAL RECORDS. [employer] provides no warranty or guarantee of the accuracy or completeness of information in this document.
== END 2023-04-12 17:14 | disposition home or self-care (01) ==
PROVIDERS: Emergency Provider Emergency Medicine; Visit Provider Emergency Medicine
DX: O99.512 Diseases of the respiratory system complicating pregnancy, second trimester (principal); J10.1 Influenza due to other identified influenza virus with other respiratory manifestations; Z3A.25 25 weeks gestation of pregnancy
CPT/HCPCS: 80048; 81001; 84702; 85025; 87631; 96361; 96374; 99283; J7030; J2405

== ENCOUNTER 2023-08-11 19:03 | Emergency (ER) | payer BC, SELFPAY ==
[2023-08-11 19:04] VITALS: BP 110/72; PULSE 70; RESP 15; TEMP 36.2; O2SAT 100; BMI 27.4
--- NOTE | 2023-08-11 19:34 | EX.ED.DYSGE1 ---
HPI History of Present Illness Chief Complaint: Flank Pain Informant: patient Onset/Context/Timing Onset: Days (2-3) Context: Gradual Onset Timing: Continuous and Waxes and wanes Quality: Burning Location: Lower abdomen and left flank Worsened by: Nothing Relieved by: Nothing Narrative Narrative: Patient presents with dysuria that has been getting worse over the past 2 to 3 days. Patient states she had some burning in her lower abdomen. Patient states she also had some burning with urination. Patient states her pain is since progressed to her left flank area. Patient states nothing makes it better and nothing makes it worse. Patient states she had recent vaginal delivery and is unsure if the burning is related to her delivery or if she has a bladder infection. Patient denies any fevers or chills. Patient denies any nausea or vomiting. [facility] Medical History (Updated 08/11/23 @ 21:[address] Matt Quinonez DO) Kidney stone Home Medications ?Medication ?Instructions ?Recorded ?Last Taken ?Type ondansetron 4 mg disintegrating 4 mg PO Q8H PRN PRN Nausea #20 tabs 12/05/22 Unknown Rx tablet promethazine 25 mg tablet 25 mg PO Q8H PRN PRN nausea and 12/09/22 Unknown History vomiting metoclopramide HCl 5 mg tablet 5 mg PO 4X/DAY PRN PRN nausea and 12/10/22 Unknown Rx (Reglan) vomiting #28 tabs oseltamivir 75 mg capsule 75 mg PO BID #10 CAPSULES 04/12/23 Unknown Rx cephalexin 500 mg capsule 500 mg PO 4X/DAY #12 CAPSULES 08/11/23 Unknown Rx Allergy/AdvReac Type Severity Reaction Status Date / Time No Known Allergies Allergy Verified 08/11/23 19:09 Surgical History (Updated 08/11/23 @ 19:[address] Matt Quinonez DO) Hx of tonsillectomy Social History Smoking Status: Never smoker ROS ROS ED Constitutional Constitutional ED: Denies chills or fever(s) Eyes Eyes: Denies blurry vision or change in vision ENT ENT ED: Denies rhinorrhea or sore throat Cardiovascular Cardiovascular: Denies chest pain or palpitations Respiratory/Chest Respiratory/Chest: Denies cough or dyspnea Gastrointestinal Gastrointestinal: Reports abdominal pain; Denies nausea or vomiting Genitourinary Genitourinary ED: Reports dysuria; Denies hematuria Musculoskeletal Musculoskeletal: Reports back pain; Denies neck pain Integumentary Denies abscess or rash Neurologic Neurologic: Denies headache(s) or weakness Allergic/Immunologic Allergic/Immunologic ED: Denies mouth swelling or urticaria EXAM Physical Exam Const Vital Signs: 08/11/23 19:04 Temperature 97.2 F L Temperature Source Temporal Pulse Rate 70 Respiratory Rate 15 Blood Pressure 110/72 Blood Pressure Mean 84 Pulse Ox 100 Oxygen Delivery Method Room Air Positive well nourished and well developed General Appearance ED: well developed and NAD HEENT Reports moist mucous membranes Neck supple and no JVD Resp normal respiratory effort and clear to auscultation bilaterally Cardio regular rate and regular rhythm GI non-distended Palpation: soft and tender suprapubic (Mild); Negative for guarding or rebound tenderness present Back/Spine General Back: CVA tenderness left Extremity normal to inspection General Extremety ED: Negative for edema or tenderness General Extremity: Negative for edema Neuro oriented x3, CN's II-XII intact bilaterally and no sensory deficits noted Sensorium / Orientation: alert Motor Exam: strength 5/5 throughout Psych mental status grossly normal MDM MDM MDM Narrative Medical decision making narrative: Differential diagnosis includes urinary tract infection, pyelonephritis, ovarian cyst, and gastroenteritis. CBC will be obtained to assess for leukocytosis and anemia. Basic metabolic profile will be obtained to assess for electrolyte abnormality and renal function. Urinalysis will be obtained to assess for urinary tract infection. Lab Data Attestation: I reviewed the patient's lab results. Lab results narrative: CBC was reviewed and was within normal limits. Basic metabolic profile was reviewed and was within normal limits. Serum hCG was reviewed and was negative. Urinalysis was reviewed. Leukocyte Estrace was 500 with 10-25 white blood cells and 2+ bacteria. Labs: Laboratory Results - last 24 hr 08/11/23 08/11/23 19:50 20:10 WBC 10.1 RBC 4.43 Hgb 13.6 Hct 42.2 MCV 95.3 MCH 30.7 MCHC 32.2 RDW Std Deviation 42.8 RDW Coeff of Home 12.3 Plt Count 334 MPV 9.6 Immature Gran % (Auto) 0.400 Neut % (Auto) 66.1 Lymph % (Auto) 25.3 [place] % (Auto) 5.2 Eos % (Auto) 2.1 Baso % (Auto) 0.9 Absolute Neuts (auto) 6.7 Absolute Lymphs (auto) 2.56 Nucleated RBC % 0 Sodium 138 Potassium 4.0 Chloride 105 Carbon Dioxide 27.0 Anion Gap 6 BUN 14 Creatinine 0.56 Estim Creat Clear Calc 126.78 Est GFR (MDRD) Af Amer 157 Est GFR (MDRD) Non-Af 130 BUN/Creatinine Ratio 24.9 H Glucose 93 Calcium 9.6 Serum , Qual NEGATIVE Urine Color SEE COMMENT BELOW Urine Clarity Clear Urine pH 7.0 Ur Specific [place] 1.005 Urine Protein 100 H Urine Glucose (UA) Normal Urine Ketones Negative Urine Occult Blood 250 H Urine Nitrite Negative Urine Bilirubin Negative Urine Urobilinogen Normal Ur Leukocyte Esterase 500 H Urine RBC 5-10 SEEN Urine WBC 10-25 SEEN Ur Squamous Epith Cells 0-5 SEEN Urine Bacteria 2+ Urine Mucus 0 SEEN Additional Tests and Interventions Additional Tests or Interventions: Urine culture was obtained. Treatment and Re-Evaluation :: Patient was given IV fluids. Patient was advised of her findings. Patient was given a dose of Keflex here. Patient was given a prescription for Keflex. Patient was instructed to follow-up with her primary care physician in 5 to 7 days. Patient was instructed to return if worse in any way. Patient understood and was agreeable with the plan. All questions were answered. Discharge Plan Triage Chief Complaint: Flank Pain ED Provider: Matt Quinonez Dx/Rx/DC Orders Clinical Impression: Urinary tract infection, Abdominal pain Instructions: ED Cystitis Female Adult Prescriptions: Changed cephalexin 500 mg capsule 500 mg PO 4X/DAY Qty: 12 0RF No Action oseltamivir [oseltamivir] 75 mg capsule 75 mg PO BID Qty: 10 0RF ondansetron 4 mg tablet,disintegrating 4 mg PO Q8H PRN PRN (Reason: Nausea) Qty: 20 0RF promethazine 25 mg tablet 25 mg PO Q8H PRN PRN (Reason: nausea and vomiting) Patient Comments: take 1 tablet by mouth every 8 hours if needed for nausea metoclopramide HCl [Reglan] 5 mg tablet 5 mg PO 4X/DAY PRN PRN (Reason: nausea and vomiting) Qty: 28 2RF Primary Care Provider: Care Physician,No Primary Referrals: Care Physician,No Primary [Primary Care Provider] - Print Language: Faroese Disposition Disposition: Home, Self Care
[2023-08-11 19:58] LABS: Absolute Lymphocyte Count 2.56 X10^3/uL (0.83-4.51); Absolute Neutrophil Count 6.7 X10^3/uL (2.0-7.7); Basophil# 0.09 X10^3/uL; Basophil% 0.9 % (0-1); Eosinophil# 0.21 X10^3/uL; Eosinophils% 2.1 % (0-5); Hematocrit 42.2 % (37-47); Hemoglobin 13.6 g/dL (12.0-15.0); Lymphocyte # 2.56 X10^3/ul (0.83-4.51); Lymphocyte % 25.3 % (19-41); Mean Corp Hgb Conc 32.2 g/dL (32-36); Mean Corpuscular Hgb 30.7 pg (27.0-32.0); Mean Corpuscular Volume 95.3 fL (81-99); Mean Platelet Vol. 9.6 fl (6.2-12.0); Monocyte# 0.53 X10^3/uL; Monocyte% 5.2 % (0-10); NRBC Flagged by Analyzer 0 % (0-5); Neutrophil % 66.1 % (47-70); Platelet Count 334 K/mm3 (150-450); RBC Distribution Width CV 12.3 % (11.6-14.6); RBC Distribution Width SD 42.8 fl (35.1-43.9); Red Blood Count 4.43 M/mm3 (4.2-5.4); White Blood Count 10.1 K/mm3 (4.4-11.0)
[2023-08-11] MEDS: 0.9% Normal Saline (1000mL) 1,000 ML 1000 ML IV (20:08)
[2023-08-11 20:13] LABS: Internal QC Validated? YES +Cl - CLEAR BKGD; Pregnancy, Serum, hCG Quali. NEGATIVE Negative
[2023-08-11 20:14] LABS: Mucous, Urine 0 SEEN /hpf (<or=2+)
[2023-08-11 20:14] LABS: Anion Gap 6 (5-15); BUN 14 mg/dL (7-18); BUN/Creat Ratio 24.9 RATIO (10-20); Calcium,Total 9.6 mg/dL (8.5-10.1); Chloride 105 mmol/L (98-107); Creatinine, Serum 0.56 mg/dL (0.55-1.02); EST Glomerular Filtration Rate 130 mL/min (>60); Est Glom Filt Rate - Afr Amer 157 mL/min (>60); Estimated Creatinine Clearance 126.78 ml/min; Glucose 93 mg/dL (74-106); Sodium Level 138 mmol/L (136-145)
[2023-08-11 20:15] LABS: Color, Urine SEE COMMENT BELOW (Yellow); Glucose, Dipstick Normal (Normal); Ketone-Dipstick Negative (Negative); Leukocyte Esterase-Dipstick 500 /ul (Negative); Nitrite-Dipstick Negative (Negative); Occult Blood-Urine 250 /ul (Negative); Protein-Dipstick 100 mg/dl (Negative); Specific Gravity, Urine 1.005 (1.002-1.030); Urine Bilirubin Dipstick Negative (Negative); Urine Clarity Clear (Clear); Urine Urobilinogen Normal (Normal)
[2023-08-11 20:29] LABS: Bacteria 2+ /hpf (None Seen); White Blood Cells 10-25 SEEN /hpf (0-5)
[2023-08-11 20:30] LABS: Red Blood Cells-Urine 5-10 SEEN /hpf (0-5); Squamous Epithelial Cells - UA 0-5 SEEN /hpf (5-10)
[2023-08-11 21:19] VITALS: BP 116/80; PULSE 71; RESP 14; O2SAT 99
[2023-08-11] MEDS: Cephalexin 500 MG Capsule PO (21:23)
[2023-08-11 21:24] VITALS: BP 116/80; PULSE 71; RESP 14; TEMP 36.2; O2SAT 99
== END 2023-08-11 21:25 | disposition home or self-care (01) ==
PROVIDERS: Emergency Provider Emergency Medicine; Visit Provider Emergency Medicine
DX: N39.0 Urinary tract infection, site not specified (principal); R10.9 Unspecified abdominal pain
CPT/HCPCS: 80048; 81001; 84703; 85025; 87077; 87086; 87088; 87186; 96360; 99283; J7030; A4216